=== PATIENT | male | born 1965 | race African-American/Black ===

== ENCOUNTER 2016-12-04 16:54 | Inpatient (IN) | payer OTHER ==
[~2016-12-04] VITALS: Ht 182.9 cm; Wt 75.3 kg
[2016-12-04] MEDS ORDERED: Pantoprazole 80 MG in NS 250 ML IV ONE (17:15)
[2016-12-04] MEDS ORDERED: Pantoprazole Inj IVP ONE (17:15)
[2016-12-04] MEDS ORDERED: Pantoprazole Inj ONE (18:01)
[2016-12-04 18:03] LABS: ALANINE AMINOTRANSFERASE 7 U/L (3-41); ANION GAP 23 (5-15); ASPARTATE AMINO TRANSFERASE 6 U/L (5-40); CALCIUM 10.5 mg/dL (8.6-10.2); CARBON DIOXIDE 24 mEQ/L (20-30); CHLORIDE 94 mEQ/L (98-107); CREATININE 21.3 mg/dL (0.7-1.2); GLOMERULAR FILTRATION RATE 2.8 mL/min (>60); HEMOLYSIS 5; LIPASE 42 U/L (< 60); POTASSIUM 5.1 mEQ/L (3.4-4.9); SODIUM 141 mEQ/L (135-145); TOTAL PROTEIN 6.7 g/dL (6.6-8.7)
[2016-12-04 18:15] LABS: PROTHROMBIN TIME 10.7 SEC (9.30-11.50)
--- NOTE | 2016-12-04 18:54 | Emergency Room Report ---
History of Present Illness General Chief Complaint: Gastrointestinal Bleed Source: Patient Present Illness HPI 51YOM BIBEMS for coffee ground emesis this morning and melena. No bright blood vomiting or per rectum Mild Abd pain Mild nausea now Had similar at [facility] last week - had "normal colonoscopy" and endoscopy showed "gastritis On Nexium Also on Plavix for stent placed recently Allergies: Coded Allergies: No Known Allergies (Unverified , 12/04/16) Patient History Past Medical History: CAD, GI bleed Past Surgical History: none Pertinent Family History: none Social History: Denies: smoking, alcohol use, drug use Immunizations: UTD Reviewed Nursing Documentation: PMH: Agreed, PSxH: Agreed Nursing Documentation-PMH Hx Gastrointestinal Problems: Yes - GIB ~ two weeks ago. Review of Systems All Other Systems: negative except mentioned in HPI Physical Exam Vital Signs Date Time Temp Pulse Resp B/P (MAP) Pulse Ox O2 Delivery O2 Flow Rate FiO2 12/04/16 16:53 97.5 109 18 144/97 100 Sp02 EP Interpretation: reviewed, normal General Appearance: normal inspection, well appearing, no apparent distress, alert, GCS 15, non-toxic Head: normocephalic, atraumatic Eyes: bilateral eye PERRL, bilateral eye EOMI ENT: normal ENT inspection, hearing grossly normal, normal voice Neck: normal inspection, full range of motion, supple, no bony tend Respiratory: normal inspection, lungs clear, normal breath sounds, no respiratory distress, no retraction, no wheezing Cardiovascular #1: regular rate, rhythm, no edema Gastrointestinal: normal inspection, normal bowel sounds, soft, no guarding, no hernia, other - Mild epigastric ttp. No peritonitis Genitourinary: no CVA tenderness Musculoskeletal: normal inspection, back normal, normal range of motion, Hattie' s Sign negative Neurologic: normal inspection, alert, oriented x3, responsive, typing bookkeeper III-XII nml as tested, speech normal Psychiatric: normal inspection, judgement/insight normal, mood/affect normal Skin: normal inspection, normal color, no rash Lymphatic: normal inspection Medical Decision Making Diagnostic Impression: Primary Impression: Gastrointestinal hemorrhage Qualified Codes: K92.2 - Gastrointestinal hemorrhage, unspecified Additional Impressions: Melena Anemia Qualified Codes: D64.9 - Anemia, unspecified ER Course Mild hyperK No active bleeding here Hb 6.2 Transfused 2Units in ED Vitals otherwise stable Asymptomatic Endorsed to Dr Ziegler for tele admit 654pm EKG Diagnostic Results Rate: tachycardiac Rhythm: NSR ST Segments: no acute changes ASA given to the pt in ED: No Rhythm Strip Diag. Results EP Interpretation: yes Rate: 99 Last Vital Signs Date Time Temp Pulse Resp B/P (MAP) Pulse Ox O2 Delivery O2 Flow Rate FiO2 12/04/16 16:53 97.5 109 18 144/97 100 Status: improved Disposition: ADMITTED INPATIENT Condition: Serious Referrals: NON PHYSICIAN (PCP) SCAR SCHOFIELD M.D. Dec 04, 2016 18:54
[2016-12-04 18:56] LABS: MEAN CORPUSCULAR HEMOGLOBIN 32.5 PG (27.0-31.0); MEAN CORPUSCULAR HGB CONC 34.3 G/DL (32.0-36.0); MEAN CORPUSCULAR VOLUME 95 FL (80-99); PLATELET COUNT 207 K/UL (150-450); RED BLOOD COUNT 1.92 M/UL (4.70-6.10); RED CELL DISTRIBUTION WIDTH 13.1 % (11.6-14.8)
[2016-12-04] MEDS ORDERED: Nitroglycerin Subl 0.4mg tab SL PRN (19:00)
[2016-12-04] MEDS ORDERED: Mylanta II UD 30ml ORAL PRN (19:00)
[2016-12-04] MEDS ORDERED: Morphine Sulfate 2mg/ml Inj IVP PRN (19:00)
[2016-12-04 19:09] VITALS: BP 144/97
[2016-12-04 20:51] VITALS: BP 136/107
[2016-12-04] MEDS ORDERED: FUROSEMIDE20 M1 ORAL (20:58)
[2016-12-04] MEDS ORDERED: COLACE100 MG ORAL (20:58)
[2016-12-04] MEDS ORDERED: RENVELA0.8 GM ORAL (20:58)
[2016-12-04] MEDS ORDERED: SENSIPAR30 MG ORAL (20:58)
[2016-12-04] MEDS ORDERED: CLONIDINE1 EAC1 TD (20:58)
[2016-12-04] MEDS ORDERED: RAMIPRIL2.5 MG ORAL (20:58)
[2016-12-04] MEDS ORDERED: AZOR 10-40 MG1 EACH ORAL (20:58)
[2016-12-04] MEDS ORDERED: PLAVIX75 MG ORAL (20:58)
[2016-12-04] MEDS ORDERED: OMEPRAZOLE10 M1 ORAL (20:58)
[2016-12-04] MEDS ORDERED: LIPITOR40 MG ORAL (20:58)
[2016-12-04] MEDS ORDERED: Miralax 17gm pkt ORAL PRN (21:00)
[2016-12-04 21:08] LABS: ANISOCYTOSIS 1+; BAND NEUTROPHILS % (MANUAL) 1 % (0-8); BASOPHILS % (MANUAL) 1 % (0-2); EOSINOPHILS % (MANUAL) 2 % (0-3); LYMPHOCYTES % (MANUAL) 25 % (20-45); NEUTROPHILS % (MANUAL) 65 % (45-75); PLATELET ESTIMATE ADEQUATE; PLATELET MORPHOLOGY NORMAL; TOTAL CELLS COUNTED 100
[2016-12-04 21:09] LABS: HYPOCHROMASIA 1+; POLYCHROMASIA 1+
[2016-12-04 21:35] VITALS: BP 142/96
[2016-12-04 21:50] VITALS: BP 152/101
[2016-12-04 22:57] VITALS: BP 174/109
[2016-12-04] MEDS ORDERED: Phytonadione 10 MG in D5W 55 ML IVPB ONE (23:00)
[2016-12-04] MEDS: D5NS 1,000 ML IV SCH (23:00)
[2016-12-05] VITALS (15 sets, daily range): BP systolic 85–160; BP diastolic 25–105
[2016-12-05 06:57] LABS: PROTHROMBIN TIME 10.3 SEC (9.30-11.50)
[2016-12-05 07:11] LABS: BASOPHILS % (AUTO) 1.3 % (0.0-2.0); EOSINOPHILS % (AUTO) 3.4 % (0.0-3.0); MEAN CORPUSCULAR HEMOGLOBIN 32.4 PG (27.0-31.0); MEAN CORPUSCULAR VOLUME 95 FL (80-99); MEAN PLATELET VOLUME 6.3 FL (6.5-10.1); NEUTROPHILS % (AUTO) 71.3 % (45.0-75.0); PLATELET COUNT 179 K/UL (150-450); RED BLOOD COUNT 2.46 M/UL (4.70-6.10); RED CELL DISTRIBUTION WIDTH 12.4 % (11.6-14.8); WHITE BLOOD COUNT 9.5 K/UL (4.8-10.8)
[2016-12-05 07:30] LABS: ALANINE AMINOTRANSFERASE 5 U/L (3-41); ALBUMIN/GLOBULIN RATIO 1.3 (1.0-2.7); AMYLASE 132 U/L (10-110); ANION GAP 22 (5-15); ASPARTATE AMINO TRANSFERASE < 5 U/L (5-40); CALCIUM 9.6 mg/dL (8.6-10.2); CARBON DIOXIDE 25 mEQ/L (20-30); CHLORIDE 97 mEQ/L (98-107); CREATININE 22.5 mg/dL (0.7-1.2); GLOMERULAR FILTRATION RATE 2.7 mL/min (>60); HEMOLYSIS 2; LIPASE 44 U/L (< 60); POTASSIUM 5.3 mEQ/L (3.4-4.9); SODIUM 144 mEQ/L (135-145); TOTAL PROTEIN 5.8 g/dL (6.6-8.7)
[2016-12-05] MEDS: D5NS 1,000 ML IV SCH (08:26)
[2016-12-05] MEDS ORDERED: NS 275ml IVPB ONE (09:55)
--- NOTE | 2016-12-05 10:07 | Anethesia Preoperative Eval ---
Anesthesia Pre-op PMH/ROS General Date of Evaluation: Dec 05, 2016 Time of Evaluation: 10:06 Anesthesiologist: negro ASA Score: ASA 3 Mallampati Score Class I : Soft palate, uvula, fauces, pillars visible Class II: Soft palate, uvula, fauces visible Class III: Soft palate, base of uvula visible Class IV: Only hard plate visible Mallampati Classification: Class III Surgeon: lenard Diagnosis: anemia; gi bleed Surgical Procedure: EGD Anesthesia History: none Family History: no anesthesia problems Allergies: Coded Allergies: No Known Allergies (Unverified , 12/04/16) Medications: see eMAR Past Medical History Cardiovascular: Reports: HTN, CAD Pulmonary: Denies: asthma, COPD, ANOOP, other Gastrointestinal/Genitourinary: Reports: CRI Neurologic/Psychiatric: Denies: dementia, CVA, depression/anxiety, TIA, other Endocrine: Denies: DM, hypothyroidism, steroids, other HEENT: Denies: cataract (L), cataract (R), glaucoma, [place] (L), [place] (R), other Hematology/Immune: Reports: anemia Musculoskeletal/Integumentary: Denies: OA, RA, DJD, DDD, edema, other PSxH Narrative: cardiac stent last week; colonoscopy Anesthesia Pre-op Phys. Exam Physician Exam Last Vital Signs Date Time Temp Pulse Resp B/P (MAP) Pulse Ox O2 Delivery O2 Flow Rate FiO2 12/05/16 08:39 164/105 12/05/16 08:16 96.8 96 20 99 Room Air Constitutional: NAD Neurologic: CN 2-12 intact Cardiovascular: RRR Respiratory: CTA Gastrointestinal: S/NT/ND Airway Exam Mallampati Classification 3 Mallampati Score: Class II MO: full ROM: full Dentures: no upper, no lower Anesthesia Pre-op A/P Labs Hematology Test 12/04/16 18:08 12/05/16 05:05 White Blood Count 9.0 K/UL (4.8-10.8) 9.5 K/UL (4.8-10.8) Red Blood Count 1.92 M/UL (4.70-6.10) L 2.46 M/UL (4.70-6.10) L Hemoglobin 6.2 G/DL (14.2-18.0) *L 8.0 G/DL (14.2-18.0) L Hematocrit 18.2 % (42.0-52.0) L 23.4 % (42.0-52.0) L Mean Corpuscular Volume 95 FL (80-99) 95 FL (80-99) Mean Corpuscular Hemoglobin 32.5 PG (27.0-31.0) H 32.4 PG (27.0-31.0) H Mean Corpuscular Hemoglobin Concent 34.3 G/DL (32.0-36.0) 34.0 G/DL (32.0-36.0) Red Cell Distribution Width 13.1 % (11.6-14.8) 12.4 % (11.6-14.8) Platelet Count 207 K/UL (150-450) 179 K/UL (150-450) Mean Platelet Volume 6.0 FL (6.5-10.1) L 6.3 FL (6.5-10.1) L Neutrophils (%) (Auto) % (45.0-75.0) 71.3 % (45.0-75.0) Lymphocytes (%) (Auto) % (20.0-45.0) 17.0 % (20.0-45.0) L Monocytes (%) (Auto) % (1.0-10.0) 7.0 % (1.0-10.0) Eosinophils (%) (Auto) % (0.0-3.0) 3.4 % (0.0-3.0) H Basophils (%) (Auto) % (0.0-2.0) 1.3 % (0.0-2.0) Differential Total Cells Counted 100 Neutrophils % (Manual) 65 % (45-75) Lymphocytes % (Manual) 25 % (20-45) Monocytes % (Manual) 6 % (1-10) Eosinophils % (Manual) 2 % (0-3) Basophils % (Manual) 1 % (0-2) Band Neutrophils 1 % (0-8) Platelet Estimate Adequate Platelet Morphology Normal Polychromasia 1+ Hypochromasia 1+ Anisocytosis 1+ Coagulation Test 12/04/16 17:48 12/05/16 05:05 Prothrombin Time 10.7 SEC (9.30-11.50) 10.3 SEC (9.30-11.50) Prothromb Time International Ratio 1.0 (0.9-1.1) 1.0 (0.9-1.1) Activated Partial Thromboplast Time 28 SEC (23-33) 26 SEC (23-33) Chemistry Test 12/04/16 17:20 12/05/16 05:05 Sodium Level 141 mEQ/L (135-145) 144 mEQ/L (135-145) Potassium Level 5.1 mEQ/L (3.4-4.9) H 5.3 mEQ/L (3.4-4.9) H Chloride Level 94 mEQ/L (98-107) L 97 mEQ/L (98-107) L Carbon Dioxide Level 24 mEQ/L (20-30) 25 mEQ/L (20-30) Anion Gap 23 (5-15) H 22 (5-15) H Blood Urea Nitrogen 96 mg/dL (7-23) H 120 mg/dL (7-23) H Creatinine 21.3 mg/dL (0.7-1.2) H 22.5 mg/dL (0.7-1.2) H Estimat Glomerular Filtration Rate 2.8 mL/min (>60) 2.7 mL/min (>60) Glucose Level 91 mg/dL (74-106) 75 mg/dL (74-106) Calcium Level 10.5 mg/dL (8.6-10.2) H 9.6 mg/dL (8.6-10.2) Total Bilirubin < 0.2 mg/dL (0.0-1.2) 0.3 mg/dL (0.0-1.2) Aspartate Amino Transf (AST/SGOT) 6 U/L (5-40) < 5 U/L (5-40) L Alanine Aminotransferase (ALT/SGPT) 7 U/L (3-41) 5 U/L (3-41) Alkaline Phosphatase 44 U/L (40-129) 41 U/L (40-129) Total Protein 6.7 g/dL (6.6-8.7) 5.8 g/dL (6.6-8.7) L Albumin 3.5 g/dL (3.5-5.2) 3.3 g/dL (3.5-5.2) L Globulin 3.2 g/dL 2.5 g/dL Albumin/Globulin Ratio 1.0 (1.0-2.7) 1.3 (1.0-2.7) Lipase 42 U/L (< 60) 44 U/L (< 60) Amylase Level 132 U/L (10-110) H Studies Pre-op Studies: EKG - ST - 90; received 2 units prbc, Risk Assessment & Plan Assessment: Add on pt under the care of Dr. Staley. Currently taking plavix for cardiac stentsx2 , done last week. Denies CP. No cardiac enzymes. H/H post [address] on ECG Plan: mac Status Change Before Surgery: No Pre-Antibiotics Drug: none DERIAN SILVERMAN CRNA Dec 05, 2016 10:07
--- NOTE | 2016-12-05 10:11 | Pre-Procedure Note/Attestation ---
Pre-Procedure Note/Attestation Complete Prior to Procedure Planned Procedure: not applicable Procedure Narrative: egd Indications for Procedure Pre-Operative Diagnosis: gib Attestation I attest that I discussed the nature of the procedure; its benefits; risks and complications; and alternatives (and the risks and benefits of such alternatives ), prior to the procedure, with the patient (or the patient's legal special service representative). I attest that, if there was a reasonable possibility of needing a blood transfusion, the patient (or the patient's legal special service representative) was given the [facility] standardized written summary, pursuant to the [place] Blood Safety Act ([place] Health and Safety Code # 1645, as amended). I attest that I re-evaluated the patient just prior to the surgery and that there has been no change in the patient's H&P, except as documented below: ADAL ESTEVEZ Dec 05, 2016 10:11
[2016-12-05] MEDS ORDERED: EPINEPHrine 1mg/10ml Syringe IV ONE (10:25)
[2016-12-05] MEDS ORDERED: DuoNeb 0.5-3(2.5)mg/3ml neb HHN PRN ×2 (10:30→13:30)
[2016-12-05] MEDS ORDERED: Succinylcholine 20mg/ml 10ml vial ONE (10:47)
[2016-12-05 11:12] LABS: URIC ACID 5.7 mg/dL (3.0-7.5)
[2016-12-05] MEDS ORDERED: Aminocaproic Acid Inj 5,000 MG in NS 110 ML IV ONE (11:30)
--- NOTE | 2016-12-05 11:54 | Endoscopy Procedure Note ---
Endoscopy Procedure Note Indication for Procedure: active GIB Procedures Performed: EGD Operative Findings/Diagnosis: active GIB s/p hemostasis Specimen: none Pt Tolerated Procedure Well: Yes Estimated Blood Loss: none Anesthesiologist: jeannie Anesthesia: MAC Implant(s) used?: No 50 yrs or older w/o bx or poly: Not Applicable 10yrs. F/U not recommended: Not Applicable ADAL ESTEVEZ Dec 05, 2016 11:54
[2016-12-05] MEDS ORDERED: Premarin Inj IV ONE (12:00)
[2016-12-05] MEDS ORDERED: Pantoprazole 80 MG in NS 250 ML IV SCH (12:00)
[2016-12-05] MEDS ORDERED: ERYTHROMYCIN IVPB SCH (12:00)
[2016-12-05] MEDS ORDERED: NS IVPB SCH (12:00)
--- NOTE | 2016-12-05 12:28 | 48 Hour Post Anesthesia Eval ---
Post Anesthesia Evaluation Procedure: EGD Date of Evaluation: Dec 05, 2016 Time of Evaluation: 12:27 Blood Pressure Systolic: 131 0: 92 Pulse Rate: 102 Respiratory Rate: 14 O2 Sat by Pulse Oximetry: 100 Airway: other - intubated/ 55% 550 14 Nausea: No Vomiting: No Hydration Status: adequate Mental Status/LOC: patient returned to baseline Follow-up Care/Observations: per gi/pcp Post-Anesthesia Complications: none Follow-up care needed: N/A DERIAN SILVERMAN CRNA Dec 05, 2016 12:28
--- NOTE | 2016-12-05 12:32 | Immediate Post-Op Evaluation ---
Immediate Post-Op Evalulation Immediate Post-Op Evalulation Procedure: EGD Date of Evaluation: Dec 05, 2016 Time of Evaluation: 11:15 IV Fluids: 800 Blood Products: 150 Estimated Blood Loss: 300 Blood Pressure Systolic: 131 Blood Pressure Diastolic: 65 Pulse Rate: 105 Respiratory Rate: 14 O2 Sat by Pulse Oximetry: 100 Nausea: No Vomiting: No Complications none Patient Status: reacts, ventilated - intubated patient in GI suite for airway protection. Pt had large mount of brown and red bright blood vomitus. VSS, called for 3 unit of blood. Hydration Status: adequate Drug: none DERIAN SILVERMAN CRNA Dec 05, 2016 12:32
[2016-12-05] MEDS ORDERED: Renvela 800mg Pkt ORAL SCH (13:00)
[2016-12-05 13:04] LABS: ABG PCO2 37.9 mmHg (35.0-45.0)
[2016-12-05 13:05] LABS: ABG ALLEN TEST POSITIVE
--- NOTE | 2016-12-05 13:20 | Diagnostic Imaging Report ---
Indication: Status post intubation Technique: One view of the chest Comparison: none Findings: There is an endotracheal tube in place, tip projecting approximately 7 cm above the reny, in satisfactory position. The lungs and pleural spaces are clear. The heart is upper limits of normal in size. Aorta is tortuous and calcified. There is thoracic scoliotic deformity Impression: Satisfactory endotracheal intubation No definite acute cardiopulmonary process
[2016-12-05] MEDS ORDERED: Mylanta II UD 30ml ORAL PRN (13:30)
[2016-12-05] MEDS ORDERED: D5NS 1,000 ML IV SCH (13:30)
[2016-12-05] MEDS ORDERED: Morphine Sulfate 2mg/ml Inj IVP PRN (13:30)
[2016-12-05] MEDS ORDERED: Nitroglycerin Subl 0.4mg tab SL PRN (13:30)
[2016-12-05] MEDS: Pantoprazole 80 MG in NS 250 ML IV SCH (13:45)
[2016-12-05] MEDS: Renvela 800mg Pkt ORAL SCH ×2 (13:45→18:00)
--- NOTE | 2016-12-05 13:59 | Consultation ---
Consult Note Consult Note asked to eval for dialysis 51YOM BIBEMS for coffee ground emesis this morning and melena. No bright blood vomiting or per rectum Mild Abd pain Mild nausea now [facility] - had "normal colonoscopy" and endoscopy showed "gastritis On Nexium Also on Plavix for stent placed recently Past Medical History: CAD, GI bleed patient has ESRD on PD ( has Tenchoff catheter left LQ) in ICU intubated meds: Lipitor-Clonidine- Plavix-DSS Ramipril Norvasc Omeprazol Assessment/Plan Status: ESRD on PD Acute GI Bleed- HTN Intubated on Vent post colonoscopy and endoscopy Plan; per GI arrange for Manoj cath and HD as Peritoneal dialysis is not done at [facility] ! Keep BP and H&H in check CELIO CAREY Dec 05, 2016 13:59
--- NOTE | 2016-12-05 14:21 | Cardiology Progress Note ---
Assessment/Plan Assessment/Plan sever anemia recurrent gi bleed esrd on pd cad s/p stent repeortely last week htn [id number] Objective Last 24 Hour Vital Signs Date Time Temp Pulse Resp B/P (MAP) Pulse Ox O2 Delivery O2 Flow Rate FiO2 12/05/16 13:26 105 14 50 12/05/16 12:32 105 14 100 12/05/16 12:28 102 14 100 12/05/16 12:00 104 12/05/16 11:44 108 23 50 12/05/16 08:39 164/105 12/05/16 08:16 96.8 96 20 154/102 99 Room Air 12/05/16 04:01 98.1 95 21 160/100 100 Room Air 95 12/05/16 04:00 102 12/05/16 00:00 104 12/04/16 23:33 98.3 101 19 169/102 100 Room Air 12/04/16 22:57 98.3 99 19 174/109 100 Room Air 12/04/16 21:50 98.3 113 17 152/101 100 Room Air 12/04/16 21:50 98.3 113 17 12/04/16 21:35 98.3 106 17 12/04/16 21:35 98.3 106 17 142/96 100 Room Air 12/04/16 20:51 97.5 111 17 136/107 100 Room Air 12/04/16 19:09 103 20 144/97 98 Room Air 12/04/16 16:53 97.5 109 18 144/97 100 Laboratory Tests Test 12/04/16 17:20 12/04/16 17:48 12/04/16 18:08 12/05/16 05:05 Sodium Level 141 mEQ/L (135-145) 144 mEQ/L (135-145) Potassium Level 5.1 mEQ/L (3.4-4.9) H 5.3 mEQ/L (3.4-4.9) H Chloride Level 94 mEQ/L (98-107) L 97 mEQ/L (98-107) L Carbon Dioxide Level 24 mEQ/L (20-30) 25 mEQ/L (20-30) Anion Gap 23 (5-15) H 22 (5-15) H Blood Urea Nitrogen 96 mg/dL (7-23) H 120 mg/dL (7-23) H Creatinine 21.3 mg/dL (0.7-1.2) H 22.5 mg/dL (0.7-1.2) H Estimat Glomerular Filtration Rate 2.8 mL/min (>60) 2.7 mL/min (>60) Glucose Level 91 mg/dL (74-106) 75 mg/dL (74-106) Calcium Level 10.5 mg/dL (8.6-10.2) H 9.6 mg/dL (8.6-10.2) Total Bilirubin < 0.2 mg/dL (0.0-1.2) 0.3 mg/dL (0.0-1.2) Aspartate Amino Transf (AST/SGOT) 6 U/L (5-40) < 5 U/L (5-40) L Alanine Aminotransferase (ALT/SGPT) 7 U/L (3-41) 5 U/L (3-41) Alkaline Phosphatase 44 U/L (40-129) 41 U/L (40-129) Total Protein 6.7 g/dL (6.6-8.7) 5.8 g/dL (6.6-8.7) L Albumin 3.5 g/dL (3.5-5.2) 3.3 g/dL (3.5-5.2) L Globulin 3.2 g/dL 2.5 g/dL Albumin/Globulin Ratio 1.0 (1.0-2.7) 1.3 (1.0-2.7) Lipase 42 U/L (< 60) 44 U/L (< 60) Prothrombin Time 10.7 SEC (9.30-11.50) 10.3 SEC (9.30-11.50) Prothromb Time International Ratio 1.0 (0.9-1.1) 1.0 (0.9-1.1) Activated Partial Thromboplast Time 28 SEC (23-33) 26 SEC (23-33) White Blood Count 9.0 K/UL (4.8-10.8) 9.5 K/UL (4.8-10.8) Red Blood Count 1.92 M/UL (4.70-6.10) L 2.46 M/UL (4.70-6.10) L Hemoglobin 6.2 G/DL (14.2-18.0) *L 8.0 G/DL (14.2-18.0) L Hematocrit 18.2 % (42.0-52.0) L 23.4 % (42.0-52.0) L Mean Corpuscular Volume 95 FL (80-99) 95 FL (80-99) Mean Corpuscular Hemoglobin 32.5 PG (27.0-31.0) H 32.4 PG (27.0-31.0) H Mean Corpuscular Hemoglobin Concent 34.3 G/DL (32.0-36.0) 34.0 G/DL (32.0-36.0) Red Cell Distribution Width 13.1 % (11.6-14.8) 12.4 % (11.6-14.8) Platelet Count 207 K/UL (150-450) 179 K/UL (150-450) Mean Platelet Volume 6.0 FL (6.5-10.1) L 6.3 FL (6.5-10.1) L Neutrophils (%) (Auto) % (45.0-75.0) 71.3 % (45.0-75.0) Lymphocytes (%) (Auto) % (20.0-45.0) 17.0 % (20.0-45.0) L Monocytes (%) (Auto) % (1.0-10.0) 7.0 % (1.0-10.0) Eosinophils (%) (Auto) % (0.0-3.0) 3.4 % (0.0-3.0) H Basophils (%) (Auto) % (0.0-2.0) 1.3 % (0.0-2.0) Differential Total Cells Counted 100 Neutrophils % (Manual) 65 % (45-75) Lymphocytes % (Manual) 25 % (20-45) Monocytes % (Manual) 6 % (1-10) Eosinophils % (Manual) 2 % (0-3) Basophils % (Manual) 1 % (0-2) Band Neutrophils 1 % (0-8) Platelet Estimate Adequate Platelet Morphology Normal Polychromasia 1+ Hypochromasia 1+ Anisocytosis 1+ Amylase Level 132 U/L (10-110) H Test 12/05/16 05:55 12/05/16 13:00 Uric Acid 5.7 mg/dL (3.0-7.5) Total Creatine Kinase 37 U/L (38-174) L Arterial Blood pH 7.362 (7.350-7.450) Arterial Blood Partial Pressure CO2 37.9 mmHg (35.0-45.0) Arterial Blood Partial Pressure O2 222.5 mmHg (75.0-100.0) H Arterial Blood HCO3 21.0 mmol/L (22.0-26.0) L Arterial Blood Oxygen Saturation 98.8 % (92.0-98.0) H Arterial Blood Base Excess -4.0 Chidi Test Positive KEV CORNEJO Dec 05, 2016 14:21
--- NOTE | 2016-12-05 14:30 | History and Physical ---
History of Present Illness General Date patient seen: Dec 04, 2016 Reason for Hospitalization: Gastrointestinal Bleed Present Illness HPI 51 year old male with hx of ESRF on peritoneal dialysis, with recent hx of GI bleeding, underwent cardiac stent placement recently and was started on Plaxis and aspirin presented to [facility] for coffee ground emesis yesterday morning and melena. He had similar episode at [facility] last week - had "normal colonoscopy" and endoscopy showed "gastritis. He was found severely anemia and admitted to telemetry for further work up. Allergies: Coded Allergies: No Known Allergies (Unverified , 12/04/16) Medication History Scheduled Amlodipine Bes/Olmesartan Med 10-40 Mg Tablet (Pasha 10-40 Mg Tablet), 1 TAB ORAL DAILY, (Reported) Atorvastatin Calcium* (Lipitor*), 40 MG ORAL DAILY, (Reported) Cinacalcet* (Sensipar*), 30 MG ORAL DAILY, (Reported) Clopidogrel Bisulfate* (Plavix*), 70 MG ORAL DAILY, (Reported) Docusate Sodium* (Colace*), 100 MG ORAL DAILY, (Reported) Furosemide* (Lasix*), 20 MG ORAL DAILY, (Reported) Omeprazole (Omeprazole), 10 MG ORAL DAILY, (Reported) Ramipril* (Ramipril*), 2.5 MG ORAL DAILY, (Reported) Sevelamer Carbonate* (Renvela*), 800 MG ORAL THREE TIMES A DAY, (Reported) Miscellaneous Medications Clonidine (Clonidine), 1 EACH TD, (Reported) Patient History Healthcare decision maker Resuscitation status Full Code Advanced Directive on File No Past Medical/Surgical History Past Medical/Surgical History: (1) Stented coronary artery (2) ESRF (end stage renal failure) (3) Peritoneal dialysis status Review of Systems Constitutional: Reports: malaise, weakness Eye: Reports: no symptoms ENT: Reports: no symptoms All Other Systems: negative except mentioned in HPI Physical Exam General Appearance: WD/WN Lines, tubes and drains: peripheral HEENT: normocephalic, atraumatic Neck: non-tender, normal alignment Respiratory/Chest: chest wall non-tender, lungs clear Cardiovascular/Chest: normal peripheral pulses, normal rate Abdomen: normal bowel sounds, non tender Extremities: normal range of motion Last 24 Hour Vital Signs Date Time Temp Pulse Resp B/P (MAP) Pulse Ox O2 Delivery O2 Flow Rate FiO2 9/19/17 13:26 105 14 50 12/05/16 12:32 105 14 100 12/05/16 12:28 102 14 100 12/05/16 12:00 104 12/05/16 11:44 108 23 50 12/05/16 08:39 164/105 12/05/16 08:16 96.8 96 20 154/102 99 Room Air 12/05/16 04:01 98.1 95 21 160/100 100 Room Air 95 12/05/16 04:00 102 12/05/16 00:00 104 12/04/16 23:33 98.3 101 19 169/102 100 Room Air 12/04/16 22:57 98.3 99 19 174/109 100 Room Air 12/04/16 21:50 98.3 113 17 152/101 100 Room Air 12/04/16 21:50 98.3 113 17 12/04/16 21:35 98.3 106 17 12/04/16 21:35 98.3 106 17 142/96 100 Room Air 12/04/16 20:51 97.5 111 17 136/107 100 Room Air 12/04/16 19:09 103 20 144/97 98 Room Air 12/04/16 16:53 97.5 109 18 144/97 100 Laboratory Tests Test 12/04/16 17:20 12/04/16 17:48 12/04/16 18:08 12/05/16 05:05 Sodium Level 141 mEQ/L (135-145) 144 mEQ/L (135-145) Potassium Level 5.1 mEQ/L (3.4-4.9) H 5.3 mEQ/L (3.4-4.9) H Chloride Level 94 mEQ/L (98-107) L 97 mEQ/L (98-107) L Carbon Dioxide Level 24 mEQ/L (20-30) 25 mEQ/L (20-30) Anion Gap 23 (5-15) H 22 (5-15) H Blood Urea Nitrogen 96 mg/dL (7-23) H 120 mg/dL (7-23) H Creatinine 21.3 mg/dL (0.7-1.2) H 22.5 mg/dL (0.7-1.2) H Estimat Glomerular Filtration Rate 2.8 mL/min (>60) 2.7 mL/min (>60) Glucose Level 91 mg/dL (74-106) 75 mg/dL (74-106) Calcium Level 10.5 mg/dL (8.6-10.2) H 9.6 mg/dL (8.6-10.2) Total Bilirubin < 0.2 mg/dL (0.0-1.2) 0.3 mg/dL (0.0-1.2) Aspartate Amino Transf (AST/SGOT) 6 U/L (5-40) < 5 U/L (5-40) L Alanine Aminotransferase (ALT/SGPT) 7 U/L (3-41) 5 U/L (3-41) Alkaline Phosphatase 44 U/L (40-129) 41 U/L (40-129) Total Protein 6.7 g/dL (6.6-8.7) 5.8 g/dL (6.6-8.7) L Albumin 3.5 g/dL (3.5-5.2) 3.3 g/dL (3.5-5.2) L Globulin 3.2 g/dL 2.5 g/dL Albumin/Globulin Ratio 1.0 (1.0-2.7) 1.3 (1.0-2.7) Lipase 42 U/L (< 60) 44 U/L (< 60) Prothrombin Time 10.7 SEC (9.30-11.50) 10.3 SEC (9.30-11.50) Prothromb Time International Ratio 1.0 (0.9-1.1) 1.0 (0.9-1.1) Activated Partial Thromboplast Time 28 SEC (23-33) 26 SEC (23-33) White Blood Count 9.0 K/UL (4.8-10.8) 9.5 K/UL (4.8-10.8) Red Blood Count 1.92 M/UL (4.70-6.10) L 2.46 M/UL (4.70-6.10) L Hemoglobin 6.2 G/DL (14.2-18.0) *L 8.0 G/DL (14.2-18.0) L Hematocrit 18.2 % (42.0-52.0) L 23.4 % (42.0-52.0) L Mean Corpuscular Volume 95 FL (80-99) 95 FL (80-99) Mean Corpuscular Hemoglobin 32.5 PG (27.0-31.0) H 32.4 PG (27.0-31.0) H Mean Corpuscular Hemoglobin Concent 34.3 G/DL (32.0-36.0) 34.0 G/DL (32.0-36.0) Red Cell Distribution Width 13.1 % (11.6-14.8) 12.4 % (11.6-14.8) Platelet Count 207 K/UL (150-450) 179 K/UL (150-450) Mean Platelet Volume 6.0 FL (6.5-10.1) L 6.3 FL (6.5-10.1) L Neutrophils (%) (Auto) % (45.0-75.0) 71.3 % (45.0-75.0) Lymphocytes (%) (Auto) % (20.0-45.0) 17.0 % (20.0-45.0) L Monocytes (%) (Auto) % (1.0-10.0) 7.0 % (1.0-10.0) Eosinophils (%) (Auto) % (0.0-3.0) 3.4 % (0.0-3.0) H Basophils (%) (Auto) % (0.0-2.0) 1.3 % (0.0-2.0) Differential Total Cells Counted 100 Neutrophils % (Manual) 65 % (45-75) Lymphocytes % (Manual) 25 % (20-45) Monocytes % (Manual) 6 % (1-10) Eosinophils % (Manual) 2 % (0-3) Basophils % (Manual) 1 % (0-2) Band Neutrophils 1 % (0-8) Platelet Estimate Adequate Platelet Morphology Normal Polychromasia 1+ Hypochromasia 1+ Anisocytosis 1+ Amylase Level 132 U/L (10-110) H Test 12/05/16 05:55 12/05/16 13:00 Uric Acid 5.7 mg/dL (3.0-7.5) Total Creatine Kinase 37 U/L (38-174) L Arterial Blood pH 7.362 (7.350-7.450) Arterial Blood Partial Pressure CO2 37.9 mmHg (35.0-45.0) Arterial Blood Partial Pressure O2 222.5 mmHg (75.0-100.0) H Arterial Blood HCO3 21.0 mmol/L (22.0-26.0) L Arterial Blood Oxygen Saturation 98.8 % (92.0-98.0) H Arterial Blood Base Excess -4.0 Chidi Test Positive Height (Feet): 6 Height (Inches): 0.00 Weight (Pounds): 150 Medications Current Medications Medications (Trade) Dose Ordered Sig/Ajit Route PRN Reason Start Time Stop Time Status Last Admin Dose Admin Acetaminophen (Tylenol) 650 mg Q4H PRN ORAL T>100.5 12/05/16 13:30 01/03/17 13:29 Albuterol/ Ipratropium (DuoNeb 0.5-3(2.5)mg/3ml) 3 ml Q4H PRN HHN Shortness of Breath 12/05/16 13:30 12/10/16 13:29 Aminocaproic Acid 5000 mg/Sodium Chloride 130 ml @ 130 mls/hr ONCE ONCE IV 12/06/16 15:30 12/06/16 16:29 Cinacalcet (Sensipar) 30 mg DAILY ORAL 12/06/16 09:00 01/05/17 08:59 Dextrose (Dextrose 50%) STAT PRN IV Hypoglycemia 12/05/16 13:30 01/03/17 13:29 Dextrose/Sodium Chloride 1,000 ml @ 30 mls/hr Q24H IV 12/06/16 14:30 01/05/17 14:29 Diphenhydramine HCl (Benadryl) 25 mg Q6H PRN ORAL Itching/Pruritis 12/05/16 13:30 01/03/17 13:29 Erythromycin Lactobionate 250 mg/Sodium Chloride 110 ml @ 110 mls/hr [id number] ERYTHROMYCIN IVPB 12/05/16 18:00 12/12/16 11:59 Hydralazine HCl (Apresoline) 10 mg Q4H PRN IV for spb >160 12/05/16 13:30 01/04/17 13:29 Morphine Sulfate (Morphine Sulfate) 2 mg Q4H PRN IVP Severe Pain (Pain Scale 7-10) 12/05/16 13:30 12/11/16 13:29 Nitroglycerin (Ntg) 0.4 mg Q5M X 3 DOSES PRN SL Prn Chest Pain 12/05/16 13:30 01/03/17 13:29 Ondansetron HCl (Zofran) 4 mg Q6H PRN IVP Nausea & Vomiting 12/05/16 13:30 01/03/17 13:29 Pantoprazole 80 mg/Sodium Chloride 250 ml @ 25 mls/hr Q10H IV 12/05/16 14:00 01/04/17 13:59 12/05/16 13:45 Polyethylene Glycol (Miralax) 17 gm HSPRN PRN ORAL Constipation 12/05/16 21:00 01/03/17 20:59 Sevelamer Carbonate (Renvela) 800 mg THREE TIMES A DAY ORAL 12/05/16 14:00 01/04/17 13:59 Temazepam (Restoril) 15 mg HSPRN PRN ORAL Insomnia 12/05/16 21:00 12/11/16 20:59 Assessment/Plan Problem List: (1) Hemorrhagic shock SNOMED: 257594 (2) Gastrointestinal hemorrhage ICD Codes: K92.2 - Gastrointestinal hemorrhage, unspecified SNOMED: 75672825 Qualifiers: Qualified Codes: K92.2 - Gastrointestinal hemorrhage, unspecified (3) ESRF (end stage renal failure) ICD Codes: N18.6 - End stage renal disease SNOMED: 25135594 (4) Peritoneal dialysis status ICD Codes: Z99.2 - Dependence on renal dialysis SNOMED: 354847319 (5) Stented coronary artery ICD Codes: Z95.5 - Presence of coronary angioplasty implant and graft SNOMED: 36600909, 245667732 (6) Anemia ICD Codes: D64.9 - Anemia, unspecified SNOMED: 210350235 Qualifiers: Qualified Codes: D64.9 - Anemia, unspecified Assessment/Plan prbc prn GI evaluation NPO iv fluids renal to see dvt prophylaxis cardiology decide when to start Plavix ROSALINDA ISAACS Dec 05, 2016 14:30
--- NOTE | 2016-12-05 14:36 | Pulmonolgy Critical Care Note ---
Critical Care - Asmt/Plan Problems: (1) Gastrointestinal hemorrhage (2) ESRF (end stage renal failure) (3) Hemorrhagic shock (4) Stented coronary artery (5) Peritoneal dialysis status (6) Anemia Respiratory: monitor respiratory rate, adjust FIO2 Cardiac: continue to monitor HR/BP Renal: F/U I&O, keep IV fluid Infectious Disease: check cultures, continue antibiotics Gastrointestinal: hold feedings, adjust feedings Endocrine: monitor blood sugar, check TSH Hematologic: monitor H/H Neurologic: PRN Morphine Prophylaxis: Protonix, Heparin Notes Reviewed: manager emergency department Discussed with: nurses, consultants Critical Care - Objective Last 24 Hour Vital Signs Date Time Temp Pulse Resp B/P (MAP) Pulse Ox O2 Delivery O2 Flow Rate FiO2 12/05/16 13:26 105 14 50 12/05/16 12:32 105 14 100 12/05/16 12:28 102 14 100 12/05/16 12:00 104 12/05/16 11:44 108 23 50 12/05/16 08:39 164/105 12/05/16 08:16 96.8 96 20 154/102 99 Room Air 12/05/16 04:01 98.1 95 21 160/100 100 Room Air 95 12/05/16 04:00 102 12/05/16 00:00 104 12/04/16 23:33 98.3 101 19 169/102 100 Room Air 12/04/16 22:57 98.3 99 19 174/109 100 Room Air 12/04/16 21:50 98.3 113 17 152/101 100 Room Air 12/04/16 21:50 98.3 113 17 12/04/16 21:35 98.3 106 17 12/04/16 21:35 98.3 106 17 142/96 100 Room Air 12/04/16 20:51 97.5 111 17 136/107 100 Room Air 12/04/16 19:09 103 20 144/97 98 Room Air 12/04/16 16:53 97.5 109 18 144/97 100 Status: awake Condition: critical HEENT: atraumatic Lungs: clear Heart: HR/BP stable, HR/BP unstable Abdomen: soft, non-tender, feeding tube Extremities: no C/C/E, edema Critical Care - Subjective ROS Limited/Unobtainable: No ICU Day: 1 Intubation Day: 1 Interval Events: pt was intubated after endoscopy, abnormal gastric vessels were clipped. FI02: 50 Vent Support Breath Rate: 14 Vent Support Mode: AC Vent Tidal Volume: 550 Sputum Amount: Small PIP: 21 Fluids: d5 1/2 NS 100 cc.hour CXR: roxann ET-Tube: 7.5 ET Position: 23 Labs: Laboratory Tests Test 12/04/16 17:20 12/04/16 17:48 12/04/16 18:08 12/05/16 05:05 Sodium Level 141 mEQ/L (135-145) 144 mEQ/L (135-145) Potassium Level 5.1 mEQ/L (3.4-4.9) H 5.3 mEQ/L (3.4-4.9) H Chloride Level 94 mEQ/L (98-107) L 97 mEQ/L (98-107) L Carbon Dioxide Level 24 mEQ/L (20-30) 25 mEQ/L (20-30) Anion Gap 23 (5-15) H 22 (5-15) H Blood Urea Nitrogen 96 mg/dL (7-23) H 120 mg/dL (7-23) H Creatinine 21.3 mg/dL (0.7-1.2) H 22.5 mg/dL (0.7-1.2) H Estimat Glomerular Filtration Rate 2.8 mL/min (>60) 2.7 mL/min (>60) Glucose Level 91 mg/dL (74-106) 75 mg/dL (74-106) Calcium Level 10.5 mg/dL (8.6-10.2) H 9.6 mg/dL (8.6-10.2) Total Bilirubin < 0.2 mg/dL (0.0-1.2) 0.3 mg/dL (0.0-1.2) Aspartate Amino Transf (AST/SGOT) 6 U/L (5-40) < 5 U/L (5-40) L Alanine Aminotransferase (ALT/SGPT) 7 U/L (3-41) 5 U/L (3-41) Alkaline Phosphatase 44 U/L (40-129) 41 U/L (40-129) Total Protein 6.7 g/dL (6.6-8.7) 5.8 g/dL (6.6-8.7) L Albumin 3.5 g/dL (3.5-5.2) 3.3 g/dL (3.5-5.2) L Globulin 3.2 g/dL 2.5 g/dL Albumin/Globulin Ratio 1.0 (1.0-2.7) 1.3 (1.0-2.7) Lipase 42 U/L (< 60) 44 U/L (< 60) Prothrombin Time 10.7 SEC (9.30-11.50) 10.3 SEC (9.30-11.50) Prothromb Time International Ratio 1.0 (0.9-1.1) 1.0 (0.9-1.1) Activated Partial Thromboplast Time 28 SEC (23-33) 26 SEC (23-33) White Blood Count 9.0 K/UL (4.8-10.8) 9.5 K/UL (4.8-10.8) Red Blood Count 1.92 M/UL (4.70-6.10) L 2.46 M/UL (4.70-6.10) L Hemoglobin 6.2 G/DL (14.2-18.0) *L 8.0 G/DL (14.2-18.0) L Hematocrit 18.2 % (42.0-52.0) L 23.4 % (42.0-52.0) L Mean Corpuscular Volume 95 FL (80-99) 95 FL (80-99) Mean Corpuscular Hemoglobin 32.5 PG (27.0-31.0) H 32.4 PG (27.0-31.0) H Mean Corpuscular Hemoglobin Concent 34.3 G/DL (32.0-36.0) 34.0 G/DL (32.0-36.0) Red Cell Distribution Width 13.1 % (11.6-14.8) 12.4 % (11.6-14.8) Platelet Count 207 K/UL (150-450) 179 K/UL (150-450) Mean Platelet Volume 6.0 FL (6.5-10.1) L 6.3 FL (6.5-10.1) L Neutrophils (%) (Auto) % (45.0-75.0) 71.3 % (45.0-75.0) Lymphocytes (%) (Auto) % (20.0-45.0) 17.0 % (20.0-45.0) L Monocytes (%) (Auto) % (1.0-10.0) 7.0 % (1.0-10.0) Eosinophils (%) (Auto) % (0.0-3.0) 3.4 % (0.0-3.0) H Basophils (%) (Auto) % (0.0-2.0) 1.3 % (0.0-2.0) Differential Total Cells Counted 100 Neutrophils % (Manual) 65 % (45-75) Lymphocytes % (Manual) 25 % (20-45) Monocytes % (Manual) 6 % (1-10) Eosinophils % (Manual) 2 % (0-3) Basophils % (Manual) 1 % (0-2) Band Neutrophils 1 % (0-8) Platelet Estimate Adequate Platelet Morphology Normal Polychromasia 1+ Hypochromasia 1+ Anisocytosis 1+ Amylase Level 132 U/L (10-110) H Test 12/05/16 05:55 12/05/16 13:00 Uric Acid 5.7 mg/dL (3.0-7.5) Total Creatine Kinase 37 U/L (38-174) L Arterial Blood pH 7.362 (7.350-7.450) Arterial Blood Partial Pressure CO2 37.9 mmHg (35.0-45.0) Arterial Blood Partial Pressure O2 222.5 mmHg (75.0-100.0) H Arterial Blood HCO3 21.0 mmol/L (22.0-26.0) L Arterial Blood Oxygen Saturation 98.8 % (92.0-98.0) H Arterial Blood Base Excess -4.0 Chidi Test Positive ROSALINDA ISAACS Dec 05, 2016 14:36
[2016-12-05] MEDS ORDERED: Tubing Blood Filter IV ONE (15:05)
[2016-12-05] MEDS ORDERED: Tubing IV Secondary IV ONE (15:05)
[2016-12-05] MEDS ORDERED: NS 275ml ONE (15:05)
[2016-12-05] MEDS: D5 1/2NS 1,000 ML IV SCH (15:27)
--- NOTE | 2016-12-05 15:40 | Diagnostic Imaging Report ---
Indication: Abnormal renal function tests Technique: Grayscale and duplex images of the kidneys, retroperitoneum, and bladder were obtained. Comparison:None Findings: Right kidney measures 7.9 cm in length. Left kidney measures 9.6 cm in length. Both kidneys demonstrate increased echogenicity. No hydronephrosis. Both kidneys demonstrate small cysts. Normal inferior vena cava. Bladder is nearly empty, demonstrates mild wall thickening. Impression: Echogenic bilateral kidneys, consistent with known history of chronic renal failure. Note atrophy of the right kidney Mild bladder wall thickening, significance uncertain. Possibility of cystitis should be considered Incidental finding bilateral renal cysts
[2016-12-05] MEDS ORDERED: Heparin 2000 units/Ns 1000ml IV PRN (15:45)
[2016-12-05] MEDS ORDERED: Lidocaine 1% Plain 30 ml INJ PRN (15:45)
[2016-12-05 15:59] LABS: BASOPHILS % (AUTO) 1.4 % (0.0-2.0); EOSINOPHILS % (AUTO) 0.5 % (0.0-3.0); LYMPHOCYTES % (AUTO) 8.1 % (20.0-45.0); MEAN CORPUSCULAR HEMOGLOBIN 31.1 PG (27.0-31.0); MEAN CORPUSCULAR HGB CONC 33.3 G/DL (32.0-36.0); MEAN CORPUSCULAR VOLUME 93 FL (80-99); MEAN PLATELET VOLUME 6.6 FL (6.5-10.1); MONOCYTES % (AUTO) 5.9 % (1.0-10.0); NEUTROPHILS % (AUTO) 84.2 % (45.0-75.0); PLATELET COUNT 191 K/UL (150-450); RED BLOOD COUNT 2.74 M/UL (4.70-6.10); WHITE BLOOD COUNT 12.7 K/UL (4.8-10.8)
--- NOTE | 2016-12-05 17:01 | Diagnostic Imaging Report ---
Indication: History of chronic renal failure. Needs dialysis access Technique: Procedure performed at bedside. Informed consent obtained prior to commencement of the procedure. Procedural timeout performed. Total sterile technique, including sterile probe cover and sterile gel, sterile gloves, hand hygiene, hat, mask, sterile gown, large sterile drape, and preparation with 2% chlorhexidine utilized. Local anesthesia with 1% lidocaine. Under real-time ultrasound guidance, puncture right external jugular vein using 21-gauge single, passage 0.018 guidewire, insertion 5 Kuwaiti micropuncture introducer, passage 0.035 guidewire, over which was passed serial dilators and then a 13 [place]i 15 cm triple-lumen temporary dialysis catheter. Guidewire was removed. Catheter ports were aspirated and flushed. The catheter was fixed to the skin. Patient tolerated procedure well. A chest x-ray was obtained, documents catheter tip position at the in the superior vena cava. Comparison: None Findings: As above Impression: Successful bedside placement of right external jugular temporary dialysis catheter, as described.
[2016-12-05 19:26] LABS: MEAN CORPUSCULAR HEMOGLOBIN 33.7 PG (27.0-31.0); MEAN CORPUSCULAR HGB CONC 36.4 G/DL (32.0-36.0); MEAN CORPUSCULAR VOLUME 93 FL (80-99); MEAN PLATELET VOLUME 6.4 FL (6.5-10.1); PLATELET COUNT 149 K/UL (150-450); RED BLOOD COUNT 2.39 M/UL (4.70-6.10); RED CELL DISTRIBUTION WIDTH 13.2 % (11.6-14.8); WHITE BLOOD COUNT 13.4 K/UL (4.8-10.8)
[2016-12-05 19:38] LABS: LACTATE DEHYDROGENASE 139 U/L (135-230)
[2016-12-05 19:40] LABS: HEMOLYSIS 2; IRON 166 ug/dL (59-158); TOTAL IRON BINDING CAPACITY 213 ug/dL (250-400)
[2016-12-05 19:48] LABS: FERRITIN 648 ng/mL (10-230)
[2016-12-05 20:47] LABS: ANISOCYTOSIS 1+; BAND NEUTROPHILS % (MANUAL) 1 % (0-8); BASOPHILS % (MANUAL) 0 % (0-2); EOSINOPHILS % (MANUAL) 1 % (0-3); HYPOCHROMASIA 1+; LYMPHOCYTES % (MANUAL) 10 % (20-45); NEUTROPHILS % (MANUAL) 79 % (45-75); PLATELET ESTIMATE DECREASED; PLATELET MORPHOLOGY NORMAL; TOTAL CELLS COUNTED 100
[2016-12-05 20:48] LABS: PATH BLOOD SMEAR/OMC SENT TO PATHOLOGIST; RETICULOCYTE COUNT 1.5 % (0.0-2.0)
[2016-12-05] MEDS: NS IVPB SCH (20:53)
[2016-12-05] MEDS: ERYTHROMYCIN IVPB SCH (20:53)
[2016-12-05] MEDS ORDERED: Miralax 17gm pkt ORAL PRN (21:00)
--- NOTE | 2016-12-05 21:30 | Procedure Note ---
DATE OF PROCEDURE: 12/05/2016 REFERRING PHYSICIAN: Lynette Ziegler M.D. SURGEON: Khai Funez M.D. PROCEDURE: Upper endoscopy with hemostasis. ANESTHESIA: Per Radha BURROUGHS. INSTRUMENT: Olympus adult flexible upper endoscope. INDICATION: Upper GI bleeding. Reason for Procedure: The procedure, risks, benefits, and possible consequences, including hemorrhage, aspiration, perforation and infection, and alternative treatments, were explained to the patient/legal guardian by Dr. Khai Funez and the patient/legal guardian understood and accepted these risks. Description Of Procedure: After informed consent was obtained and the patient was adequately sedated, Olympus upper endoscope was advanced from the mouth into the second portion of the duodenum. The patient had a lot of blood clots in the stomach. We started to look for a lesion in the midbody of the stomach around the greater curvature, most probably the source of bleeding because it was oozing blood. As we tried to put a clip on it, the patient started vomiting, so we had to take the scope out. The patient vomited a lot of coffee-ground material. We suctioned, cleaned up his mouth, we stabilized him again, and went back again into the stomach. We were able to place two clips on this Dieulafoy lesion. I also injected 2 mL of 10:10,000 dilution epinephrine was injected around this Dieulafoy area. Also, we tattooed the area for future endoscopies if the patient rebleeds. At this time, the scope was retrieved and procedure was terminated. Summary Of Findings: Active bleeding in the stomach from a Dieulafoy lesion in the midbody of the stomach, status post hemostasis with two Hemoclip placement and 2 mL of epinephrine injection and also tattooing the area for future references. Plan: The patient will be admitted to ICU. We will put the patient on Protonix drip. We are also going to give him erythromycin for emptying the stomach. If the patient rebleeds, we have to go back in. We are also going to keep him n.p.o., transfuse him 1 unit, and monitor his hemoglobin and hematocrit closely. Regarding starting Plavix, I have to discuss with the dinkey engine firer/fireman given the patient has just had a stent and has not had Plavix since Sunday, but he is actively also bleeding. it is safe to wait for another 24 hours without the Plavix. We will discuss with the dinkey engine firer/fireman. I want to thank Dr. Ziegler for this kind referral. Khai Funez M.D. DR: AKIKO JOB#: [id number] CC: Lynette Ziegler M.D.; Fax#: [phone]
[2016-12-06] VITALS (24 sets, daily range): BP systolic 123–173; BP diastolic 79–115
[2016-12-06] MEDS: Pantoprazole 80 MG in NS 250 ML IV SCH ×3 (00:01→20:46)
--- NOTE | 2016-12-06 02:00 | Consultation ---
DATE OF CONSULTATION: 12/05/2016 CARDIOLOGY CONSULTATION CONSULTING PHYSICIAN: Manuel Orozco M.D. REFERRING PHYSICIAN: Lynette Ziegler M.D. Reason For Referral: Gastrointestinal bleed in the setting of recent percutaneous coronary intervention. History of Present Illness: The patient is a very unfortunate middle-aged gentleman, whose information is obtained from the patient although he is on a ventilator, he is not able to talk, and from review of the patient's chart at [facility]. The patient apparently has had history of recurrent GI bleeds for which he had several clippings, one back in July 2016 and subsequently another one back in September 2016. In September 2016, the records indicate he had GI blood loss and he underwent clipping x1 with biopsy and colonoscopy at the same time was performed. The patient was taken off of aspirin on 10/02/2016. Apparently last week, he went in for workup for evaluation of kidney transplant and during that transplantation, he had some abnormalities of a stress test and as I understand in talking with the patient, he had two stents in apparently two different vessels, that information is not completely clear which vessel, but he does clearly indicate he had two stents put in at that time and he was started on aspirin and Plavix at that time. He presented to the hospital here in emergency room because of GI bleeding again of significant degree. He was taken for an endoscopy by Dr. Funez having found Dieulafoy lesions for which clips were placed and another one was found in the esophagus. The patient in the meantime has not been able to take his aspirin and Plavix since possibly yesterday although it is not completely clear whether he took the dose yesterday or not. Nevertheless, this consultation was subsequently requested. The patient never had any chest pain prior to his percutaneous coronary intervention as I understand that this was all performed in the setting of pretransplant treatment and evaluation. He has no chest pain at the present time. He did have some shortness of breath last night. There is no PND or orthopnea. He did not have any significant dizziness or lightheadedness. He has some palpitations at times. Past Medical History: Positive for history of recurrent GI bleeding on several occasions having clips, anemia, chronic renal disease, anemia secondary to blood loss acute as well as renal failure, peritoneal dialysis in situ, systemic hypertension, hyperlipidemia, and cervical disease had been documented in [facility] records. 02:27 records from [facility] indicated the patient has had some records at [facility] which showed that in 2014, he had had some heart failure, one record indicates ejection fraction of less than 30% and subsequently 40%, hypertensive urgency, and he has had history of altered mentation and delirium tremens as well as alcohol abuse history and abnormal liver function on prior occasions, [facility] as well as thrombocytopenia and electrolyte abnormalities as well as tachycardia. He has also had secondary hyperparathyroidism and the records from [facility] also were reviewed. He apparently had history of smoking. At [facility] evaluation for transplant, they had a concern about him not being compliant with medication. Apparently, they did an echocardiogram which showed excellent ejection fraction in 2016 with a stress test showing at that time no evidence of ischemia. PAST SURGICAL HISTORY: Cervical laminectomy. Allergies: [facility] indicates he is allergic to FERNANDO inhibitors. [facility] records indicate he has had some allergic reaction to beta-blockers, carvedilol. Social History: He has had history of smoking and alcohol drinks. He absolutely denies any cocaine use; however, his [facility] records indicate he has had cocaine use back in 1980s. Review of Systems: Gastrointestinal: As mentioned, nausea and vomiting one day before. Genitourinary: He makes some urine. He is on peritoneal dialysis. Pulmonary: Denies any coughing or wheezing. Constitutional: Denies any fever, chills, or night sweats. Neurologic: He denies. PHYSICAL EXAMINATION: General: This is a middle-aged gentleman on a mechanical ventilator, awake and responsive. ET tube has some secretions within it. Vital Signs: His blood pressure is anywhere between to 164/105. LUNGS: Relatively clear except for some rhonchi. CARDIAC: Regular rhythm. Tachycardic. No heaves or thrills noted. ABDOMEN: Soft and nontender. Positive bowel sounds. EXTREMITIES: There is no edema, clubbing, or cyanosis. Neurologic: He is awake, alert, and responsive. He seems to be moving all four extremities. Laboratory And Diagnostic Data: EKG shows sinus tachycardia, rate of 109 at the time of presentation, delay in R-wave progression that was noted on the electrocardiogram. His other laboratories when he presented to the emergency room last night, he had hemoglobin of 6.2 and subsequently this morning, it was 8.0, his white count 9.5 today, and his platelet count was 179,000. Blood gas, pH of 7.36, pCO2 38, pO2 of 221, bicarbonate of 21, and 99% saturation. Sodium 144, potassium 5.2, chloride 97, bicarbonate 25, BUN 120, and creatinine 22.2. Uric acid of 5.7. AST less than 5, ALT 5, and alkaline phosphatase 41. CK of 337. Coagulation studies, INR 1.0 and PTT of 22. Imaging, chest x-ray was performed, satisfactory endotracheal tube placement. ASSESSMENT AND PLAN: 1. Acute gastrointestinal bleed. 2. Acute anemia. 3. History of gastrointestinal bleed and anemia, requiring clipping on several occasions. 4. End-stage renal disease, on home peritoneal dialysis. 5. Sinus tachycardia secondary to anemia. 6. Hypertension. 7. Anemia of chronic disease. 8. Hyperlipidemia. 9. Secondary hyperparathyroidism. 10. History of cervical laminectomy. 11. FERNANDO inhibitor as well as carvedilol allergic reactions. 12. Coronary artery disease, status post recent stenting one week ago or so at [facility]. Dr. Ziegler, this patient was seen in cardiac consultation. The case was discussed with GI as well as yourself. It appears that records from [facility] indicate he has had several bouts of GI bleeding. His episode of gastrointestinal bleeding most recently has been treated today acutely by Dr. Funez, who I have got a chance to talk with. He has got significant bleeding issues that he was noted, but those were clipped. In the communication with Dr. Funez, he will consider allowing us to restart antiplatelet agents as soon as tomorrow hopefully to prevent his stents from thrombosing as they are brand-new stents. I need more details of the type of stent that was used. [facility] will need to be contacted to provide information about those. In the meantime, I will order an echocardiogram to evaluate his left ventricular systolic function. Cardiac enzyme will be ordered, EKG will be repeated, and we will follow the patient along. He does have significant risk of stent thrombosis should he be off his aspirin and Plavix. Unfortunately, he will require minimal at least 30 days for those, but most likely the usual treatment of at least six months because he did not have unstable angina at the time of his implantation of his coronaries. Nevertheless, at least a month before discontinuation needs to be considered, but likely six months. Manuel Orozco M.D. DR: CROW JOB#: [id number] CC:
[2016-12-06] MEDS: NS IVPB SCH ×3 (02:26→19:15)
[2016-12-06] MEDS: ERYTHROMYCIN IVPB SCH ×3 (02:26→19:15)
[2016-12-06 06:01] LABS: MEAN CORPUSCULAR HEMOGLOBIN 32.7 PG (27.0-31.0); MEAN CORPUSCULAR HGB CONC 34.8 G/DL (32.0-36.0); MEAN CORPUSCULAR VOLUME 94 FL (80-99); MEAN PLATELET VOLUME 5.9 FL (6.5-10.1); PLATELET COUNT 127 K/UL (150-450); RED BLOOD COUNT 2.07 M/UL (4.70-6.10); RED CELL DISTRIBUTION WIDTH 13.8 % (11.6-14.8); WHITE BLOOD COUNT 9.5 K/UL (4.8-10.8)
[2016-12-06 06:28] LABS: CRP QUANT 1.8 mg/dL (< 0.5)
[2016-12-06 06:29] LABS: ALBUMIN/GLOBULIN RATIO 1.1 (1.0-2.7); CALCIUM 9.1 mg/dL (8.6-10.2); CHOLESTEROL/HDL RATIO 2.8 (3.3-4.4); CREATININE 13.8 mg/dL (0.7-1.2); GLOMERULAR FILTRATION RATE 4.6 mL/min (>60); PHOSPHORUS 4.3 mg/dL (2.5-4.8); POTASSIUM 4.7 mEQ/L (3.4-4.9); TOTAL PROTEIN 5.4 g/dL (6.6-8.7)
[2016-12-06 06:32] LABS: THYROID STIMULATING HORMONE 3.14 uIU/mL (0.300-4.500)
[2016-12-06 08:06] LABS: ABG ALLEN TEST POSITIVE; ABG BASE EXCESS -0.6; ABG PCO2 36.2 mmHg (35.0-45.0)
[2016-12-06] MEDS: Sensipar 30mg Tab ORAL SCH (08:34)
[2016-12-06] MEDS: Renvela 800mg Pkt ORAL SCH ×3 (08:34→18:00)
--- NOTE | 2016-12-06 08:34 | General Progress Note ---
Assessment/Plan Status: stable - from renal stand Status Narrative Had HD yesterday via right jugular Manoj Assessment/Plan status: ESRD on PD as out patient Acute GI Bleed- Anemia HTN Intubated on Vent post colonoscopy and endoscopy Plan; per GI Was diaslysed yesterday will repeat in am Keep BP and H&H in check transfuse as needed Weaning off vent as possible per orders Subjective ROS Limited/Unobtainable: Yes Allergies: Coded Allergies: No Known Allergies (Unverified , 12/04/16) Objective Last 24 Hour Vital Signs Date Time Temp Pulse Resp B/P (MAP) Pulse Ox O2 Delivery O2 Flow Rate FiO2 12/06/16 08:00 97.8 102 16 146/85 100 Mechanical Ventilator 50 12/06/16 08:00 50 12/06/16 08:00 86 12/06/16 07:26 172/106 12/06/16 07:00 92 15 172/106 100 Mechanical Ventilator 50 12/06/16 07:00 87 14 50 12/06/16 06:00 92 15 155/94 100 Mechanical Ventilator 50 12/06/16 05:09 96 17 50 12/06/16 05:00 88 15 151/96 100 Mechanical Ventilator 50 12/06/16 04:00 98.1 100 16 141/83 100 Mechanical Ventilator 50 12/06/16 04:00 50 12/06/16 04:00 91 12/06/16 03:30 90 14 50 12/06/16 03:00 96 15 173/104 100 Mechanical Ventilator 50 12/06/16 02:27 174/96 12/06/16 02:00 100 15 160/96 100 Mechanical Ventilator 50 12/06/16 01:30 86 13 50 12/06/16 01:00 83 15 160/99 100 Mechanical Ventilator 50 12/06/16 00:00 98.4 93 20 155/97 100 Mechanical Ventilator 50 12/06/16 00:00 50 12/06/16 00:00 88 12/05/16 23:30 89 15 50 12/05/16 23:00 90 15 151/93 100 Mechanical Ventilator 50 12/05/16 22:00 95 15 144/93 100 Mechanical Ventilator 50 12/05/16 21:21 111 22 50 12/05/16 21:00 94 15 158/98 100 Mechanical Ventilator 50 12/05/16 20:39 Mechanical Ventilator 50 12/05/16 20:37 98.0 100 16 134/88 100 Mechanical Ventilator 50 12/05/16 20:00 98.0 97 19 131/87 100 Mechanical Ventilator 50 12/05/16 20:00 50 12/05/16 20:00 106 12/05/16 19:30 100 15 50 12/05/16 19:00 111 18 86/59 100 Mechanical Ventilator 50 12/05/16 18:00 117 15 109/83 99 Mechanical Ventilator 50 12/05/16 17:17 108 18 50 12/05/16 17:00 111 19 148/100 99 Mechanical Ventilator 50 12/05/16 16:40 Mechanical Ventilator 50 12/05/16 16:11 50 12/05/16 16:00 97.6 118 19 144/104 99 Mechanical Ventilator 50 12/05/16 16:00 118 12/05/16 15:00 118 23 50 12/05/16 14:00 116 19 85/25 99 Mechanical Ventilator 50 12/05/16 13:26 105 14 50 12/05/16 13:00 108 19 139/105 99 Mechanical Ventilator 50 12/05/16 12:32 105 14 100 12/05/16 12:28 102 14 100 12/05/16 12:00 104 19 131/91 99 Mechanical Ventilator 50 12/05/16 12:00 104 12/05/16 12:00 50 12/05/16 11:44 108 23 50 12/05/16 08:39 164/105 Intake and Output 12/06/16 12/07/16 19:00 07:00 Intake Total 75 ml Output Total 60 ml Balance 15 ml IV Total 75 ml Output Urine Total 60 ml Laboratory Tests 12/05/16 13:00: Arterial Blood pH 7.362, Arterial Blood Partial Pressure CO2 37.9, Arterial Blood Partial Pressure O2 222.5H, Arterial Blood HCO3 21.0L, Arterial Blood Oxygen Saturation 98.8H, Arterial Blood Base Excess -4.0, Chidi Test Positive 12/05/16 15:07: White Blood Count 12.7H, Red Blood Count 2.74L, Hemoglobin 8.5L, Hematocrit 25.6L, Mean Corpuscular Volume 93, Mean Corpuscular Hemoglobin 31.1H, Mean Corpuscular Hemoglobin Concent 33.3, Red Cell Distribution Width 13.0, Platelet Count 191, Mean Platelet Volume 6.6, Neutrophils (%) (Auto) 84.2H, Lymphocytes ( %) (Auto) 8.1L, Monocytes (%) (Auto) 5.9, Eosinophils (%) (Auto) 0.5, Basophils (%) (Auto) 1.4 12/05/16 18:50: White Blood Count 13.4H, Red Blood Count 2.39L, Hemoglobin 8.0L, Hematocrit 22.1L, Mean Corpuscular Volume 93, Mean Corpuscular Hemoglobin 33.7H, Mean Corpuscular Hemoglobin Concent 36.4H, Red Cell Distribution Width 13.2, Platelet Count 149L, Mean Platelet Volume 6.4L, Neutrophils (%) (Auto) , Lymphocytes (%) (Auto) , Monocytes (%) (Auto) , Eosinophils (%) (Auto) , Basophils (%) (Auto) , Differential Total Cells Counted 100, Neutrophils % ( Manual) 79H, Lymphocytes % (Manual) 10L, Monocytes % (Manual) 9, Eosinophils % ( Manual) 1, Basophils % (Manual) 0, Band Neutrophils 1, Platelet Estimate DecreasedL, Platelet Morphology Normal, Hypochromasia 1+, Anisocytosis 1+, Reticulocyte Count 1.5, Fibrinogen 424H, Iron Level 166H, Total Iron Binding Capacity 213L, Percent Iron Saturation 78H, Unsaturated Iron Binding 47L, Soluble Transferrin Receptor [Pending], Ferritin 648H, Lactate Dehydrogenase 139 , Total Protein (PEP) [Pending], Albumin (PEP) [Pending], Globulin (PEP) [ Pending], Albumin/Globulin Ratio [Pending], Uetzi-5-Aujxmhapf [Pending], Alpha-2 -Globulins [Pending], Beta Globulins [Pending], Beta Gamma Globulin [Pending], PEP Abnormal Protein Bands [Pending], Protein Electrophoresis Interpret [Pending ], Vitamin B12 Level 490, Folate 3.7, Hepatitis A IgM Antibody Negative, Hepatitis B Surface Antigen Negative, Hepatitis B Core IgM Antibody Negative, Hepatitis C Antibody <0.1, HIV (1&2) Antibody Rapid Negative 12/06/16 04:55: White Blood Count 9.5, Red Blood Count 2.07L, Hemoglobin 6.8*L, Hematocrit 19.5L , Mean Corpuscular Volume 94, Mean Corpuscular Hemoglobin 32.7H, Mean Corpuscular Hemoglobin Concent 34.8, Red Cell Distribution Width 13.8, Platelet Count 127L, Mean Platelet Volume 5.9L, Neutrophils (%) (Auto) , Lymphocytes (%) (Auto) , Monocytes (%) (Auto) , Eosinophils (%) (Auto) , Basophils (%) (Auto) , Neutrophils % (Manual) [Pending], Lymphocytes % (Manual) [Pending], Platelet Estimate [Pending], Platelet Morphology [Pending], Albumin/Globulin Ratio 1.1, Sodium Level 141, Potassium Level 4.7, Chloride Level 102, Carbon Dioxide Level 25, Anion Gap 14, Blood Urea Nitrogen 83#H, Creatinine 13.8H, Estimat Glomerular Filtration Rate 4.6, Glucose Level 100, Uric Acid 2.9L, Calcium Level 9.1, Phosphorus Level 4.3, Magnesium Level 2.0, Total Bilirubin 0.3, Gamma Glutamyl Transpeptidase 15, Aspartate Amino Transf (AST/SGOT) 6, Alanine Aminotransferase (ALT/SGPT) 5, Alkaline Phosphatase 40, Total Creatine Kinase 53 , C-Reactive Protein, Quantitative 1.8H, Pro-B-Type Natriuretic Peptide 3435H, Total Protein 5.4L, Albumin 2.9L, Globulin 2.5, Triglycerides Level 65, Cholesterol Level 107, LDL Cholesterol 56L, HDL Cholesterol 38, Cholesterol/HDL Ratio 2.8L, Thyroid Stimulating Hormone (TSH) 3.140 12/06/16 07:30: Urine Color [Pending], Urine Appearance [Pending], Urine pH [Pending], Urine Specific [place] [Pending], Urine Protein [Pending], Urine Glucose (UA) [Pending ], Urine Ketones [Pending], Urine Occult Blood [Pending], Urine Nitrite [Pending ], Urine Bilirubin [Pending], Urine Urobilinogen [Pending], Urine Leukocyte Esterase [Pending], Urine RBC [Pending], Urine WBC [Pending], Urine Squamous Epithelial Cells [Pending], Urine Bacteria [Pending] 12/06/16 07:40: Arterial Blood pH 7.431, Arterial Blood Partial Pressure CO2 36.2, Arterial Blood Partial Pressure O2 249.2H, Arterial Blood HCO3 23.5, Arterial Blood Oxygen Saturation 99.1H, Arterial Blood Base Excess -0.6, Chidi Test Positive Height (Feet): 6 Height (Inches): 0.00 Weight (Pounds): 150 General Appearance: other - NAD EENT: other - On vent- intubated Cardiovascular: regular rhythm, tachycardia Respiratory/Chest: decreased breath sounds Abdomen: distended CELIO CAREY Dec 06, 2016 08:34
[2016-12-06 08:41] LABS: APPEARANCE,URINE CLEAR; KETONES,URINE NEGATIVE (NEGATIVE); LEUKOCYTE ESTERASE ,URINE NEGATIVE (NEGATIVE); NITRITE,URINE NEGATIVE (NEGATIVE); PH,URINE 7 (4.5-8.0); PROTEIN,URINE 3+ (NEGATIVE); UROBILINOGEN,URINE NORMAL MG/DL (0.0-1.0)
[2016-12-06] MEDS ORDERED: Sensipar 30mg Tab ORAL SCH (09:00)
[2016-12-06 09:19] LABS: SQUAMOUS EPITHELIAL CELL,UR OCCASIONAL /LPF (NONE/OCC); WBC,URINE 0-2 /HPF (0 - 0)
--- NOTE | 2016-12-06 09:46 | Consultation ---
DATE OF CONSULTATION: 12/05/2016 HEMATOLOGY/ONCOLOGY CONSULTATION CONSULTING PHYSICIAN: Loco Cormier M.D. REQUESTING PHYSICIAN: Lynette Ziegler M.D. REASON FOR CONSULTATION: Evaluation of anemia. IDENTIFYING DATA: Dear Dr. Ziegler: The patient is a pleasant 51-year-old male with past medical history significant for end-stage renal disease on peritoneal dialysis, history of recent GI bleed, underwent cardiac stent placement, recently placed on aspirin and Plavix, at this time he presents with coffee-ground emesis as well as melena. He had a similar episode at [facility]. He had normal colonoscopy and endoscopy, which showed only gastritis. At this time, he was found to have severe anemia with hemoglobin of 6.2, therefore, hematology service was consulted for further evaluation and treatment. GI team was also consulted. The patient underwent EGD, which showed gastric mucosa with acute bleed, 2 mL of epinephrine injected. Coffee-ground emesis was noted . One unit of PRBC was transfused. The patient was transferred to the ICU. The patient getting dialysis. Past Medical History: CAD, GI bleed, end-stage renal disease, on peritoneal dialysis in ICU, is intubated. PAST SURGICAL HISTORY: None noted. Peritoneal dialysis placement. Medications: Amlodipine, Lipitor, Plavix, Colace, . Tylenol, albuterol, erythromycin, nitroglycerine, Zofran, pantoprazole, MiraLax, Levemir, . ALLERGIES: No known drug allergies. Review Of Systems: Constitutional: Some malaise and fatigue noted. Skin: No rashes, lumps, or itching. HEENT: No headache, hearing or vision changes. Breasts: No lumps, pain, or discharge. Pulmonary: No cough, sputum, or shortness of breath. Gastrointestinal: No nausea, vomiting, or diarrhea. Genitourinary: No dysuria, frequency, or urgency. Musculoskeletal: No joint swelling, muscle pain, or trauma. PHYSICAL EXAMINATION: GENERAL: The patient is in no acute distress. Vital Signs: Reviewed. Temperature 96.8 degrees Fahrenheit, blood pressure . PULMONARY: Decreased breath sounds. CARDIOVASCULAR: Regular rhythm. No S3 or S4. ABDOMEN: Soft, nontender, and nondistended. EXTREMITIES: 1+ edema. Laboratory Data: BUN 120 and creatinine 22. Total protein 5.8. Prothrombin 11. INR 1. WBC 9.5, hemoglobin 8, hematocrit 23, and platelet count 179,000. Normal differential. . ASSESSMENT AND PLAN: 1. Anemia. 2. Gastrointestinal bleed with gastritis history, underwent an EGD with esophageal bleed. Appreciate GI recommendation. 3. Anemia secondary to iron deficiency anemia. Workup has been ordered. 4. End-stage renal disease. 5. Peritoneal dialysis. 6. Coronary artery disease history with coronary angioplasty and . 7. Intubated status post procedure. 8. Anticoagulation at this time. 9. Monitor as per Cardiology service. 10. Plavix to be started. The patient was seen by Dr. Orozco. I appreciate this consultation. Loco Cormier M.D. DR: LELO JOB#: [id number] CC:
[2016-12-06 10:11] LABS: BAND NEUTROPHILS % (MANUAL) 0 % (0-8); BASOPHILS % (MANUAL) 0 % (0-2); EOSINOPHILS % (MANUAL) 0 % (0-3); HYPOCHROMASIA 1+; LYMPHOCYTES % (MANUAL) 14 % (20-45); NEUTROPHILS % (MANUAL) 83 % (45-75); PLATELET ESTIMATE DECREASED; PLATELET MORPHOLOGY NORMAL; TOTAL CELLS COUNTED 100
--- NOTE | 2016-12-06 10:13 | Diagnostic Imaging Report ---
Indication: DYSPNEA Technique: One view of the chest Comparison: 12/05/2016 image taken post dialysis catheter placement Findings: Right external jugular temporary dialysis catheter is again demonstrated. Stable satisfactory position of endotracheal tube. Lungs and pleural spaces remain clear. Heart remains borderline enlarged. Findings are unchanged Impression: Unchanged, over one day, findings as above.
--- NOTE | 2016-12-06 10:57 | Pre-Procedure Note/Attestation ---
Pre-Procedure Note/Attestation Complete Prior to Procedure Planned Procedure: not applicable Procedure Narrative: egd Indications for Procedure Pre-Operative Diagnosis: gib Attestation I attest that I discussed the nature of the procedure; its benefits; risks and complications; and alternatives (and the risks and benefits of such alternatives ), prior to the procedure, with the patient (or the patient's legal customer service representative). I attest that, if there was a reasonable possibility of needing a blood transfusion, the patient (or the patient's legal customer service representative) was given the [facility] standardized written summary, pursuant to the [place]uf[place] Blood Safety Act ([place] Health and Safety Code # 1645, as amended). I attest that I re-evaluated the patient just prior to the surgery and that there has been no change in the patient's H&P, except as documented below: ADAL ESTEVEZ Dec 06, 2016 10:57
[2016-12-06] MEDS: D5 1/2NS 1,000 ML IV SCH (11:30)
--- NOTE | 2016-12-06 11:43 | Endoscopy Procedure Note ---
Endoscopy Procedure Note Indication for Procedure: gib Procedures Performed: EGD Operative Findings/Diagnosis: gastritis Specimen: none Pt Tolerated Procedure Well: Yes Estimated Blood Loss: none Anesthesiologist: mike Anesthesia: MAC Implant(s) used?: No 50 yrs or older w/o bx or poly: Not Applicable 10yrs. F/U not recommended: Not Applicable ADAL ESTEVEZ Dec 06, 2016 11:43
--- NOTE | 2016-12-06 12:03 | Anethesia Preoperative Eval ---
Anesthesia Pre-op PMH/ROS General Date of Evaluation: Dec 06, 2016 Time of Evaluation: 11:27 Anesthesiologist: Tommy ASA Score: ASA 3 - 3E Mallampati Score Class I : Soft palate, uvula, fauces, pillars visible Class II: Soft palate, uvula, fauces visible Class III: Soft palate, base of uvula visible Class IV: Only hard plate visible Mallampati Classification: Class III Surgeon: Dee Dee Diagnosis: GI bleed Surgical Procedure: EGD Anesthesia History: none Family History: no anesthesia problems Allergies: Coded Allergies: No Known Allergies (Unverified , 12/04/16) Medications: see eMAR Past Medical History Cardiovascular: Denies: HTN, CAD, [place], valve dz, arrhythmia, other Pulmonary: Denies: asthma, COPD, ANOOP, other Gastrointestinal/Genitourinary: Reports: GERD Neurologic/Psychiatric: Denies: dementia, CVA, depression/anxiety, TIA, other Endocrine: Denies: DM, hypothyroidism, steroids, other HEENT: Denies: cataract (L), cataract (R), glaucoma, [place] (L), [place] (R), other Hematology/Immune: Reports: anemia, Denies: DVT, bleeding disorder, other Anesthesia Pre-op Phys. Exam Physician Exam Last Vital Signs Date Time Temp Pulse Resp B/P (MAP) Pulse Ox O2 Delivery O2 Flow Rate FiO2 12/06/16 11:00 98 16 153/83 100 Mechanical Ventilator 30 12/06/16 08:00 97.8 Constitutional: NAD Neurologic: CN 2-12 intact Cardiovascular: RRR Respiratory: CTA Gastrointestinal: S/NT/ND Airway Exam Mallampati Score: Class III MO: full ROM: full Teeth: intact Anesthesia Pre-op A/P Labs Hematology Test 12/05/16 15:07 12/05/16 18:50 12/06/16 04:55 White Blood Count 12.7 K/UL (4.8-10.8) H 13.4 K/UL (4.8-10.8) H 9.5 K/UL (4.8-10.8) Red Blood Count 2.74 M/UL (4.70-6.10) L 2.39 M/UL (4.70-6.10) L 2.07 M/UL (4.70-6.10) L Hemoglobin 8.5 G/DL (14.2-18.0) L 8.0 G/DL (14.2-18.0) L 6.8 G/DL (14.2-18.0) *L Hematocrit 25.6 % (42.0-52.0) L 22.1 % (42.0-52.0) L 19.5 % (42.0-52.0) L Mean Corpuscular Volume 93 FL (80-99) 93 FL (80-99) 94 FL (80-99) Mean Corpuscular Hemoglobin 31.1 PG (27.0-31.0) H 33.7 PG (27.0-31.0) H 32.7 PG (27.0-31.0) H Mean Corpuscular Hemoglobin Concent 33.3 G/DL (32.0-36.0) 36.4 G/DL (32.0-36.0) H 34.8 G/DL (32.0-36.0) Red Cell Distribution Width 13.0 % (11.6-14.8) 13.2 % (11.6-14.8) 13.8 % (11.6-14.8) Platelet Count 191 K/UL (150-450) 149 K/UL (150-450) L 127 K/UL (150-450) L Mean Platelet Volume 6.6 FL (6.5-10.1) 6.4 FL (6.5-10.1) L 5.9 FL (6.5-10.1) L Neutrophils (%) (Auto) 84.2 % (45.0-75.0) H % (45.0-75.0) % (45.0-75.0) Lymphocytes (%) (Auto) 8.1 % (20.0-45.0) L % (20.0-45.0) % (20.0-45.0) Monocytes (%) (Auto) 5.9 % (1.0-10.0) % (1.0-10.0) % (1.0-10.0) Eosinophils (%) (Auto) 0.5 % (0.0-3.0) % (0.0-3.0) % (0.0-3.0) Basophils (%) (Auto) 1.4 % (0.0-2.0) % (0.0-2.0) % (0.0-2.0) Differential Total Cells Counted 100 100 Neutrophils % (Manual) 79 % (45-75) H 83 % (45-75) H Lymphocytes % (Manual) 10 % (20-45) L 14 % (20-45) L Monocytes % (Manual) 9 % (1-10) 3 % (1-10) Eosinophils % (Manual) 1 % (0-3) 0 % (0-3) Basophils % (Manual) 0 % (0-2) 0 % (0-2) Band Neutrophils 1 % (0-8) 0 % (0-8) Platelet Estimate Decreased L Decreased L Platelet Morphology Normal Normal Hypochromasia 1+ 1+ Anisocytosis 1+ Reticulocyte Count 1.5 % (0.0-2.0) Coagulation Test 12/05/16 18:50 Fibrinogen 424 mg/dL (200-400) H Chemistry Test 12/05/16 18:50 12/06/16 04:55 Iron Level 166 ug/dL (59-158) H Total Iron Binding Capacity 213 ug/dL (250-400) L Percent Iron Saturation 78 % (15-50) H Unsaturated Iron Binding 47 ug/dL (112-346) L Soluble Transferrin Receptor Pending Ferritin 648 ng/mL (10-230) H Lactate Dehydrogenase 139 U/L (135-230) Total Protein (PEP) Pending Albumin (PEP) Pending Globulin (PEP) Pending Albumin/Globulin Ratio Pending 1.1 (1.0-2.7) Vnqxo-4-Czdzzlvny Pending Solvp-7-Yfgsicllz Pending Beta Globulins Pending Beta Gamma Globulin Pending PEP Abnormal Protein Bands Pending Protein Electrophoresis Interpret Pending Vitamin B12 Level 490 pg/mL (211-946) Folate 3.7 ng/mL (>3.0) Sodium Level 141 mEQ/L (135-145) Potassium Level 4.7 mEQ/L (3.4-4.9) Chloride Level 102 mEQ/L (98-107) Carbon Dioxide Level 25 mEQ/L (20-30) Anion Gap 14 (5-15) Blood Urea Nitrogen 83 mg/dL (7-23) #H Creatinine 13.8 mg/dL (0.7-1.2) H Estimat Glomerular Filtration Rate 4.6 mL/min (>60) Glucose Level 100 mg/dL (74-106) Uric Acid 2.9 mg/dL (3.0-7.5) L Calcium Level 9.1 mg/dL (8.6-10.2) Phosphorus Level 4.3 mg/dL (2.5-4.8) Magnesium Level 2.0 mg/dL (1.7-2.5) Total Bilirubin 0.3 mg/dL (0.0-1.2) Gamma Glutamyl Transpeptidase 15 U/L (8-61) Aspartate Amino Transf (AST/SGOT) 6 U/L (5-40) Alanine Aminotransferase (ALT/SGPT) 5 U/L (3-41) Alkaline Phosphatase 40 U/L (40-129) Total Creatine Kinase 53 U/L (38-174) C-Reactive Protein, Quantitative 1.8 mg/dL (< 0.5) H Pro-B-Type Natriuretic Peptide 3435 pg/mL (0-125) H Total Protein 5.4 g/dL (6.6-8.7) L Albumin 2.9 g/dL (3.5-5.2) L Globulin 2.5 g/dL Triglycerides Level 65 mg/dL (< 150) Cholesterol Level 107 mg/dL (< 200) LDL Cholesterol 56 mg/dL (60-99) L HDL Cholesterol 38 mg/dL (> 60) Cholesterol/HDL Ratio 2.8 (3.3-4.4) L Thyroid Stimulating Hormone (TSH) 3.140 uIU/mL (0.300-4.500) Risk Assessment & Plan Assessment: PT already intubated in ICU bed [facility]. Vent setting reviewed. Plan: MAC Status Change Before Surgery: No Pre-Antibiotics Given Within 1 Hr of Incision: Yamilet Julian CRNA Dec 06, 2016 12:03
--- NOTE | 2016-12-06 12:04 | Immediate Post-Op Evaluation ---
Immediate Post-Op Evalulation Immediate Post-Op Evalulation Procedure: EGD Date of Evaluation: Dec 06, 2016 Time of Evaluation: 11:50 IV Fluids: 10 ml Blood Pressure Systolic: 123 Blood Pressure Diastolic: 79 Pulse Rate: 98 Respiratory Rate: 14 O2 Sat by Pulse Oximetry: 99 Nausea: No Vomiting: No Patient Status: awake, reacts, patent, ventilated Hydration Status: adequate Given Within 1 Hr of Incision: Yamilet Julian CRNA Dec 06, 2016 12:04
--- NOTE | 2016-12-06 12:06 | 48 Hour Post Anesthesia Eval ---
Post Anesthesia Evaluation Procedure: EGD Date of Evaluation: Dec 06, 2016 Time of Evaluation: 12:05 Blood Pressure Systolic: 130 0: 78 Pulse Rate: 105 Respiratory Rate: 16 Temperature (Fahrenheit): 97.8 O2 Sat by Pulse Oximetry: 99 Airway: patent Nausea: No Vomiting: No Pain Intensity: 0 Hydration Status: adequate Mental Status/LOC: patient returned to baseline Follow-up care needed: patient intructions given Yamilet Sanders CRNA Dec 06, 2016 12:05
--- NOTE | 2016-12-06 12:55 | Consultation ---
Consult Note Assessment/Plan dict assuming care SCAR BARAHONA Dec 06, 2016 12:55
--- NOTE | 2016-12-06 13:03 | General Progress Note ---
Assessment/Plan Assessment/Plan 1. Anemia secondary to chronic disease as well as GI bleed. Work up has been reviewed, no evidence of iron deficiency --> s/p multiple transfusions --> monitor counts 2. Gastrointestinal bleed with gastritis history, underwent an EGD with esophageal bleed. Appreciate GI recommendations. --> endoclips placed at site of bleed 4. End-stage renal disease. 5. Peritoneal dialysis. 6. Coronary artery disease history with coronary angioplasty. 7. Intubated status post procedure. 8. Anticoagulation at this time. 9. Monitor as per Cardiology service. Subjective Constitutional: Reports: no symptoms HEENT: Reports: no symptoms Cardiovascular: Reports: no symptoms Respiratory: Reports: no symptoms Gastrointestinal/Abdominal: Reports: no symptoms Genitourinary: Reports: no symptoms Neurologic/Psychiatric: Reports: no symptoms Endocrine: Reports: no symptoms Hematologic/Lymphatic: Reports: anemia Allergies: Coded Allergies: No Known Allergies (Unverified , 12/04/16) Subjective s/p egd, severely anemic, no nausea, f/c Objective Last 24 Hour Vital Signs Date Time Temp Pulse Resp B/P (MAP) Pulse Ox O2 Delivery O2 Flow Rate FiO2 12/06/16 12:05 Nasal Cannula 2.0 28 12/06/16 12:05 105 16 99 12/06/16 12:04 98 14 99 12/06/16 11:00 98 16 153/83 100 Mechanical Ventilator 30 12/06/16 10:42 107 14 30 12/06/16 10:00 97 15 161/96 100 Mechanical Ventilator 30 12/06/16 09:13 30 12/06/16 09:12 96 18 50 12/06/16 09:00 104 14 143/85 100 Mechanical Ventilator 30 12/06/16 08:00 97.8 102 16 146/85 100 Mechanical Ventilator 50 12/06/16 08:00 50 12/06/16 08:00 86 12/06/16 07:26 172/106 12/06/16 07:00 92 15 172/106 100 Mechanical Ventilator 50 12/06/16 07:00 87 14 50 12/06/16 06:00 92 15 155/94 100 Mechanical Ventilator 50 12/06/16 05:09 96 17 50 12/06/16 05:00 88 15 151/96 100 Mechanical Ventilator 50 12/06/16 04:00 98.1 100 16 141/83 100 Mechanical Ventilator 50 12/06/16 04:00 50 12/06/16 04:00 91 12/06/16 03:30 90 14 50 12/06/16 03:00 96 15 173/104 100 Mechanical Ventilator 50 12/06/16 02:27 174/96 12/06/16 02:00 100 15 160/96 100 Mechanical Ventilator 50 12/06/16 01:30 86 13 50 12/06/16 01:00 83 15 160/99 100 Mechanical Ventilator 50 12/06/16 00:00 98.4 93 20 155/97 100 Mechanical Ventilator 50 12/06/16 00:00 50 12/06/16 00:00 88 12/05/16 23:30 89 15 50 12/05/16 23:00 90 15 151/93 100 Mechanical Ventilator 50 12/05/16 22:00 95 15 144/93 100 Mechanical Ventilator 50 12/05/16 21:21 111 22 50 12/05/16 21:00 94 15 158/98 100 Mechanical Ventilator 50 12/05/16 20:39 Mechanical Ventilator 50 12/05/16 20:37 98.0 100 16 134/88 100 Mechanical Ventilator 50 12/05/16 20:00 98.0 97 19 131/87 100 Mechanical Ventilator 50 12/05/16 20:00 50 12/05/16 20:00 106 12/05/16 19:30 100 15 50 12/05/16 19:00 111 18 86/59 100 Mechanical Ventilator 50 12/05/16 18:00 117 15 109/83 99 Mechanical Ventilator 50 12/05/16 17:17 108 18 50 12/05/16 17:00 111 19 148/100 99 Mechanical Ventilator 50 12/05/16 16:40 Mechanical Ventilator 50 12/05/16 16:11 50 12/05/16 16:00 97.6 118 19 144/104 99 Mechanical Ventilator 50 17 16:00 118 12/05/16 15:00 118 23 50 12/05/16 14:00 116 19 85/25 99 Mechanical Ventilator 50 17 13:26 105 14 50 12/05/16 13:00 108 19 139/105 99 Mechanical Ventilator 50 Intake and Output 12/06/16 12/07/16 19:00 07:00 Intake Total 75 ml Output Total 60 ml Balance 15 ml IV Total 75 ml Output Urine Total 60 ml Laboratory Tests 12/05/16 13:00: Arterial Blood pH 7.362, Arterial Blood Partial Pressure CO2 37.9, Arterial Blood Partial Pressure O2 222.5H, Arterial Blood HCO3 21.0L, Arterial Blood Oxygen Saturation 98.8H, Arterial Blood Base Excess -4.0, Chidi Test Positive 12/05/16 15:07: White Blood Count 12.7H, Red Blood Count 2.74L, Hemoglobin 8.5L, Hematocrit 25.6L, Mean Corpuscular Volume 93, Mean Corpuscular Hemoglobin 31.1H, Mean Corpuscular Hemoglobin Concent 33.3, Red Cell Distribution Width 13.0, Platelet Count 191, Mean Platelet Volume 6.6, Neutrophils (%) (Auto) 84.2H, Lymphocytes ( %) (Auto) 8.1L, Monocytes (%) (Auto) 5.9, Eosinophils (%) (Auto) 0.5, Basophils (%) (Auto) 1.4 12/05/16 18:50: White Blood Count 13.4H, Red Blood Count 2.39L, Hemoglobin 8.0L, Hematocrit 22.1L, Mean Corpuscular Volume 93, Mean Corpuscular Hemoglobin 33.7H, Mean Corpuscular Hemoglobin Concent 36.4H, Red Cell Distribution Width 13.2, Platelet Count 149L, Mean Platelet Volume 6.4L, Neutrophils (%) (Auto) , Lymphocytes (%) (Auto) , Monocytes (%) (Auto) , Eosinophils (%) (Auto) , Basophils (%) (Auto) , Differential Total Cells Counted 100, Neutrophils % ( Manual) 79H, Lymphocytes % (Manual) 10L, Monocytes % (Manual) 9, Eosinophils % ( Manual) 1, Basophils % (Manual) 0, Band Neutrophils 1, Platelet Estimate DecreasedL, Platelet Morphology Normal, Hypochromasia 1+, Anisocytosis 1+, Reticulocyte Count 1.5, Fibrinogen 424H, Iron Level 166H, Total Iron Binding Capacity 213L, Percent Iron Saturation 78H, Unsaturated Iron Binding 47L, Soluble Transferrin Receptor [Pending], Ferritin 648H, Lactate Dehydrogenase 139 , Total Protein (PEP) [Pending], Albumin (PEP) [Pending], Globulin (PEP) [ Pending], Albumin/Globulin Ratio [Pending], [id number]-[id number] [Pending], Alpha-2 -Globulins [Pending], Beta Globulins [Pending], Beta Gamma Globulin [Pending], PEP Abnormal Protein Bands [Pending], Protein Electrophoresis Interpret [Pending ], Vitamin B12 Level 490, Folate 3.7, Hepatitis A IgM Antibody Negative, Hepatitis B Surface Antigen Negative, Hepatitis B Core IgM Antibody Negative, Hepatitis C Antibody <0.1, HIV (1&2) Antibody Rapid Negative 12/06/16 04:55: White Blood Count 9.5, Red Blood Count 2.07L, Hemoglobin 6.8*L, Hematocrit 19.5L , Mean Corpuscular Volume 94, Mean Corpuscular Hemoglobin 32.7H, Mean Corpuscular Hemoglobin Concent 34.8, Red Cell Distribution Width 13.8, Platelet Count 127L, Mean Platelet Volume 5.9L, Neutrophils (%) (Auto) , Lymphocytes (%) (Auto) , Monocytes (%) (Auto) , Eosinophils (%) (Auto) , Basophils (%) (Auto) , Differential Total Cells Counted 100, Neutrophils % (Manual) 83H, Lymphocytes % (Manual) 14L, Monocytes % (Manual) 3, Eosinophils % (Manual) 0, Basophils % ( Manual) 0, Band Neutrophils 0, Platelet Estimate DecreasedL, Platelet Morphology Normal, Hypochromasia 1+, Albumin/Globulin Ratio 1.1, Sodium Level 141, Potassium Level 4.7, Chloride Level 102, Carbon Dioxide Level 25, Anion Gap 14, Blood Urea Nitrogen 83#H, Creatinine 13.8H, Estimat Glomerular Filtration Rate 4.6, Glucose Level 100, Uric Acid 2.9L, Calcium Level 9.1, Phosphorus Level 4.3, Magnesium Level 2.0, Total Bilirubin 0.3, Gamma Glutamyl Transpeptidase 15, Aspartate Amino Transf (AST/SGOT) 6, Alanine Aminotransferase (ALT/SGPT) 5, Alkaline Phosphatase 40, Total Creatine Kinase 53 , C-Reactive Protein, Quantitative 1.8H, Pro-B-Type Natriuretic Peptide 3435H, Total Protein 5.4L, Albumin 2.9L, Globulin 2.5, Triglycerides Level 65, Cholesterol Level 107, LDL Cholesterol 56L, HDL Cholesterol 38, Cholesterol/HDL Ratio 2.8L, Thyroid Stimulating Hormone (TSH) 3.140 12/06/16 07:30: Urine Color Pale yellow, Urine Appearance Clear, Urine pH 7, Urine Specific [place] 1.010, Urine Protein 3+H, Urine Glucose (UA) Negative, Urine Ketones Negative, Urine Occult Blood 1+H, Urine Nitrite Negative, Urine Bilirubin Negative, Urine Urobilinogen Normal, Urine Leukocyte Esterase Negative, Urine RBC 2-4H, Urine WBC 0-2, Urine Squamous Epithelial Cells Occasional, Urine Bacteria None 12/06/16 07:40: Arterial Blood pH 7.431, Arterial Blood Partial Pressure CO2 36.2, Arterial Blood Partial Pressure O2 249.2H, Arterial Blood HCO3 23.5, Arterial Blood Oxygen Saturation 99.1H, Arterial Blood Base Excess -0.6, Chidi Test Positive Height (Feet): 6 Height (Inches): 0.00 Weight (Pounds): 150 General Appearance: no apparent distress EENT: normal ENT inspection Neck: normal alignment Cardiovascular: normal rate Respiratory/Chest: no accessory muscle use Abdomen: no organomegaly, no mass Neurologic: clinical reimbursement specialist II-XII grossly normal Skin: warm/dry Loco Cormier Dec 06, 2016 13:03
[2016-12-06] MEDS ORDERED: D5NS 1,000 ML IV SCH (14:30)
[2016-12-06] MEDS ORDERED: Tubing IV Blood Pump IV ONE (15:14)
[2016-12-06] MEDS ORDERED: NS 275ml ONE (15:14)
[2016-12-06] MEDS ORDERED: Tubing IV Secondary IV ONE (15:14)
[2016-12-06] MEDS ORDERED: D5NS 1000ml IV ONE (15:17)
[2016-12-06] MEDS ORDERED: Aminocaproic Acid Inj 5,000 MG in NS 110 ML IV ONE (15:30)
--- NOTE | 2016-12-06 17:50 | Cardiology Progress Note ---
Assessment/Plan Assessment/Plan 1. Acute gastrointestinal bleed. 2. Acute anemia. 3. History of gastrointestinal bleed and anemia, requiring clipping on several occasions. 4. End-stage renal disease, on home peritoneal dialysis. 5. Sinus tachycardia secondary to anemia. 6. Hypertension. 7. Anemia of chronic disease. 8. Hyperlipidemia. 9. Secondary hyperparathyroidism. 10. History of cervical laminectomy. 11. FERNANDO inhibitor as well as carvedilol allergic reactions. 12. Coronary artery disease, status post recent stenting one week ago or so at [facility]. d/w dr weinberg had repeat endoscopy no source of bleeding found however hgb is stuiill quite low will starton ecotrin afte rprbc tx of 1 unti will observe hgb tomorrow if nto bled will then give ecotrin and plavix as of tomorow keep pt in icu for observation over ntie still Subjective Cardiovascular: Denies: chest pain, lightheadedness, palpitations Respiratory: Denies: shortness of breath Gastrointestinal/Abdominal: Denies: abdominal pain Genitourinary: Denies: burning Objective Last 24 Hour Vital Signs Date Time Temp Pulse Resp B/P (MAP) Pulse Ox O2 Delivery O2 Flow Rate FiO2 12/06/16 17:00 88 17 155/88 100 Nasal Cannula 2.0 12/06/16 16:00 98 12/06/16 16:00 98.1 98 16 148/115 100 Nasal Cannula 2.0 12/06/16 15:00 95 17 167/95 100 Nasal Cannula 2.0 12/06/16 14:00 92 17 159/90 100 Nasal Cannula 2.0 12/06/16 13:00 98 17 154/95 100 Nasal Cannula 2.0 12/06/16 12:05 Nasal Cannula 2.0 28 12/06/16 12:05 105 16 99 12/06/16 12:04 98 14 99 12/06/16 12:01 100 Nasal Cannula 2.0 28 12/06/16 12:00 98.0 98 16 123/79 100 Mechanical Ventilator 30 12/06/16 12:00 Nasal Cannula 2.0 28 12/06/16 12:00 91 12/06/16 12:00 30 12/06/16 11:00 98 16 153/83 100 Mechanical Ventilator 30 12/06/16 10:42 107 14 30 12/06/16 10:00 97 15 161/96 100 Mechanical Ventilator 30 2017 09:13 30 2017 09:12 96 18 50 12/06/16 09:00 104 14 143/85 100 Mechanical Ventilator 30 12/06/16 08:00 97.8 102 16 146/85 100 Mechanical Ventilator 50 2017 08:00 50 2017 08:00 86 12/06/16 07:26 172/106 12/06/16 07:00 92 15 172/106 100 Mechanical Ventilator 50 12/06/16 07:00 87 14 50 12/06/16 06:00 92 15 155/94 100 Mechanical Ventilator 50 12/06/16 05:09 96 17 50 12/06/16 05:00 88 15 151/96 100 Mechanical Ventilator 50 12/06/16 04:00 98.1 100 16 141/83 100 Mechanical Ventilator 50 12/06/16 04:00 50 12/06/16 04:00 91 12/06/16 03:30 90 14 50 12/06/16 03:00 96 15 173/104 100 Mechanical Ventilator 50 12/06/16 02:27 174/96 12/06/16 02:00 100 15 160/96 100 Mechanical Ventilator 50 12/06/16 01:30 86 13 50 12/06/16 01:00 83 15 160/99 100 Mechanical Ventilator 50 12/06/16 00:00 98.4 93 20 155/97 100 Mechanical Ventilator 50 12/06/16 00:00 50 12/06/16 00:00 88 12/05/16 23:30 89 15 50 17 23:00 90 15 151/93 100 Mechanical Ventilator 50 17 22:00 95 15 144/93 100 Mechanical Ventilator 50 17 21:21 111 22 50 12/05/17 21:00 94 15 158/98 100 Mechanical Ventilator 50 17 20:39 Mechanical Ventilator 50 12/05/17 20:37 98.0 100 16 134/88 100 Mechanical Ventilator 50 12/05/17 20:00 98.0 97 19 131/87 100 Mechanical Ventilator 50 19/17 20:00 50 19/17 20:00 106 19/17 19:30 100 15 50 19/17 19:00 111 18 86/59 100 Mechanical Ventilator 50 9/19/17 18:00 117 15 109/83 99 Mechanical Ventilator 50 General Appearance: no apparent distress, alert Neck: supple Cardiovascular: normal rate, regular rhythm Respiratory/Chest: lungs clear, normal breath sounds Abdomen: normal bowel sounds, non tender, soft Extremities: non-tender, no swelling Intake and Output 12/06/16 12/07/16 19:00 07:00 Intake Total 860 ml Output Total 60 ml Balance 800 ml IV Total 610 ml Blood Product 250 ml Output Urine Total 60 ml Laboratory Tests Test 12/05/16 18:50 12/06/16 04:55 12/06/16 07:30 12/06/16 07:40 White Blood Count 13.4 K/UL (4.8-10.8) H 9.5 K/UL (4.8-10.8) Red Blood Count 2.39 M/UL (4.70-6.10) L 2.07 M/UL (4.70-6.10) L Hemoglobin 8.0 G/DL (14.2-18.0) L 6.8 G/DL (14.2-18.0) *L Hematocrit 22.1 % (42.0-52.0) L 19.5 % (42.0-52.0) L Mean Corpuscular Volume 93 FL (80-99) 94 FL (80-99) Mean Corpuscular Hemoglobin 33.7 PG (27.0-31.0) H 32.7 PG (27.0-31.0) H Mean Corpuscular Hemoglobin Concent 36.4 G/DL (32.0-36.0) H 34.8 G/DL (32.0-36.0) Red Cell Distribution Width 13.2 % (11.6-14.8) 13.8 % (11.6-14.8) Platelet Count 149 K/UL (150-450) L 127 K/UL (150-450) L Mean Platelet Volume 6.4 FL (6.5-10.1) L 5.9 FL (6.5-10.1) L Neutrophils (%) (Auto) % (45.0-75.0) % (45.0-75.0) Lymphocytes (%) (Auto) % (20.0-45.0) % (20.0-45.0) Monocytes (%) (Auto) % (1.0-10.0) % (1.0-10.0) Eosinophils (%) (Auto) % (0.0-3.0) % (0.0-3.0) Basophils (%) (Auto) % (0.0-2.0) % (0.0-2.0) Differential Total Cells Counted 100 100 Neutrophils % (Manual) 79 % (45-75) H 83 % (45-75) H Lymphocytes % (Manual) 10 % (20-45) L 14 % (20-45) L Monocytes % (Manual) 9 % (1-10) 3 % (1-10) Eosinophils % (Manual) 1 % (0-3) 0 % (0-3) Basophils % (Manual) 0 % (0-2) 0 % (0-2) Band Neutrophils 1 % (0-8) 0 % (0-8) Platelet Estimate Decreased L Decreased L Platelet Morphology Normal Normal Hypochromasia 1+ 1+ Anisocytosis 1+ Reticulocyte Count 1.5 % (0.0-2.0) Fibrinogen 424 mg/dL (200-400) H Iron Level 166 ug/dL (59-158) H Total Iron Binding Capacity 213 ug/dL (250-400) L Percent Iron Saturation 78 % (15-50) H Unsaturated Iron Binding 47 ug/dL (112-346) L Soluble Transferrin Receptor Pending Ferritin 648 ng/mL (10-230) H Lactate Dehydrogenase 139 U/L (135-230) Total Protein (PEP) Pending Albumin (PEP) Pending Globulin (PEP) Pending Albumin/Globulin Ratio Pending 1.1 (1.0-2.7) Ljegp-0-Tlusicxyn Pending Uznva-9-Khrduhsif Pending Beta Globulins Pending Beta Gamma Globulin Pending PEP Abnormal Protein Bands Pending Protein Electrophoresis Interpret Pending Vitamin B12 Level 490 pg/mL (211-946) Folate 3.7 ng/mL (>3.0) Hepatitis A IgM Antibody Negative (Negative) Hepatitis B Surface Antigen Negative (Negative) Hepatitis B Core IgM Antibody Negative (Negative) Hepatitis C Antibody <0.1 s/co ratio HIV (1&2) Antibody Rapid Negative (NEGATIVE) Sodium Level 141 mEQ/L (135-145) Potassium Level 4.7 mEQ/L (3.4-4.9) Chloride Level 102 mEQ/L (98-107) Carbon Dioxide Level 25 mEQ/L (20-30) Anion Gap 14 (5-15) Blood Urea Nitrogen 83 mg/dL (7-23) #H Creatinine 13.8 mg/dL (0.7-1.2) H Estimat Glomerular Filtration Rate 4.6 mL/min (>60) Glucose Level 100 mg/dL (74-106) Uric Acid 2.9 mg/dL (3.0-7.5) L Calcium Level 9.1 mg/dL (8.6-10.2) Phosphorus Level 4.3 mg/dL (2.5-4.8) Magnesium Level 2.0 mg/dL (1.7-2.5) Total Bilirubin 0.3 mg/dL (0.0-1.2) Gamma Glutamyl Transpeptidase 15 U/L (8-61) Aspartate Amino Transf (AST/SGOT) 6 U/L (5-40) Alanine Aminotransferase (ALT/SGPT) 5 U/L (3-41) Alkaline Phosphatase 40 U/L (40-129) Total Creatine Kinase 53 U/L (38-174) C-Reactive Protein, Quantitative 1.8 mg/dL (< 0.5) H Pro-B-Type Natriuretic Peptide 3435 pg/mL (0-125) H Total Protein 5.4 g/dL (6.6-8.7) L Albumin 2.9 g/dL (3.5-5.2) L Globulin 2.5 g/dL Triglycerides Level 65 mg/dL (< 150) Cholesterol Level 107 mg/dL (< 200) LDL Cholesterol 56 mg/dL (60-99) L HDL Cholesterol 38 mg/dL (> 60) Cholesterol/HDL Ratio 2.8 (3.3-4.4) L Thyroid Stimulating Hormone (TSH) 3.140 uIU/mL (0.300-4.500) Urine Color Pale yellow Urine Appearance Clear Urine pH 7 (4.5-8.0) Urine Specific [place] 1.010 (1.005-1.035) Urine Protein 3+ (NEGATIVE) H Urine Glucose (UA) Negative (NEGATIVE) Urine Ketones Negative (NEGATIVE) Urine Occult Blood 1+ (NEGATIVE) H Urine Nitrite Negative (NEGATIVE) Urine Bilirubin Negative (NEGATIVE) Urine Urobilinogen Normal MG/DL (0.0-1.0) Urine Leukocyte Esterase Negative (NEGATIVE) Urine RBC 2-4 /HPF (0 - 0) H Urine WBC 0-2 /HPF (0 - 0) Urine Squamous Epithelial Cells Occasional /LPF Urine Bacteria None /HPF (NONE) Arterial Blood pH 7.431 (7.350-7.450) Arterial Blood Partial Pressure CO2 36.2 mmHg (35.0-45.0) Arterial Blood Partial Pressure O2 249.2 mmHg (75.0-100.0) H Arterial Blood HCO3 23.5 mmol/L (22.0-26.0) Arterial Blood Oxygen Saturation 99.1 % (92.0-98.0) H Arterial Blood Base Excess -0.6 Chidi Test Positive KEV CORNEJO Dec 06, 2016 17:50
[2016-12-06] MEDS ORDERED: Aspirin EC 81mg tab ORAL ONE (18:00)
--- NOTE | 2016-12-06 22:45 | Procedure Note ---
DATE OF PROCEDURE: 12/06/2016 SURGEON: Khai Funez M.D. PROCEDURE: Upper endoscopy. ANESTHESIA: Per Tommy BURROUGHS INSTRUMENT: Olympus adult flexible upper endoscope. INDICATION: Followup upper GI bleeding yesterday. Reason for Procedure: The procedure, risks, benefits, and possible consequences, including hemorrhage, aspiration, perforation and infection, and alternative treatments, were explained to the patient/legal guardian by Dr. Khai Funez and the patient/legal guardian understood and accepted these risks. History: This is a 51-year-old male with recent cardiac stent had a massive GI bleeding yesterday requiring hemostasis and intubation. Today, Cardiology want to start him on anticoagulation, we just wanted to do a second look to make sure there is no re-bleeding before anticoagulation. Procedure In Detail: After informed consent was obtained and the patient was adequately sedated, Olympus upper endoscope was advanced from mouth into the second portion of the duodenum and retroflexion was performed in the stomach.. The patient had two clips that I put yesterday in the body of the stomach in place. There was another one across from that one mostly from prior endoscopies done at another hospital. There was no active GI bleeding. No esophageal bleeding. At this time, the scope was removed and procedure was terminated. The patient tolerated the procedure very well without any complication. Khai Funez M.D. DR: CHAPITO JOB#: [id number] CC:
[2016-12-07] VITALS (24 sets, daily range): BP systolic 122–177; BP diastolic 64–105
--- NOTE | 2016-12-07 00:45 | Consultation ---
DATE OF CONSULTATION: 12/06/2016 PULMONARY CONSULTATION History Of Present Illness: The patient is a very pleasant 51-year-old man who was admitted because of upper GI bleeding. He underwent endoscopy yesterday by Dr. Funez and had some respiratory distress following the procedure and was left intubated. He was found to have Dieulafoy lesions and clips were placed. The patient remained intubated and was transferred to intensive care on a ventilator. Late yesterday, I was called by the admitting department to advise me that the patient is under an insurance plan, for which I am the designated hospitalist and his care would be transferred to me. I came to see the patient today and found him alert and responding appropriately. He is breathing adequately and no longer vomiting and extubation was recommended. However, he is undergoing another endoscopy today and we will hold extubation until following this. Past Medical History: Recurrent upper GI bleeding, chronic kidney disease on peritoneal dialysis, but now planning for hemodialysis as we do not do peritoneal dialysis at [place]. He has had coronary heart disease with recent stent placed. He is being evaluated for kidney transplant. He has hypertension and hyperlipidemia and recent cervical spine surgery. He may have some congestive heart failure. He has hyperparathyroidism of kidney disease. ALLERGIES: FERNANDO inhibitors and possibly carvedilol. Social History: He is a past smoker. He may have used cocaine many years ago. REVIEW OF SYSTEMS: Cannot be obtained. PHYSICAL EXAMINATION: General: The patient is alert and responding appropriately on the ventilator with an oral endotracheal tube. VITAL SIGNS: Stable. Blood pressure is slightly elevated. HEENT: Head is normocephalic. NECK: No jugular venous distention. CHEST: Clear. CARDIAC: Rhythm is regular. ABDOMEN: Soft and nontender. Liver and spleen are not enlarged. EXTREMITIES: No clubbing, cyanosis, or edema. LABORATORY STUDIES: Reviewed. IMPRESSIONS: 1. Acute upper gastrointestinal bleed. 2. Acute anemia, severe. 3. Postprocedure respiratory failure. 4. End-stage renal disease, on peritoneal dialysis. 5. Hypertension. 6. Hyperlipidemia. 7. Coronary heart disease, status post recent stent. Plan: The patient will undergo repeat endoscopy. Transfusions will be given as needed. If he is stable following this procedure, then he will be extubated. Cardiology will continue to follow the patient. Rod Hanley M.D. DR: JESSICA JOB#: [id number] CC: Rod Hanley M.D.; Fax#: [phone]
[2016-12-07] MEDS: NS IVPB SCH ×3 (01:56→18:59)
[2016-12-07] MEDS: ERYTHROMYCIN IVPB SCH ×3 (01:56→18:59)
[2016-12-07 05:34] LABS: A/G RATIO 1.4 (0.7-1.7); ABNORMAL PROTEIN BAND 1 Not Observed g/dL (Not Observed); ALBUMIN 3.4 g/dL (2.9-4.4); ALPHA-1 GLOBULIN 0.2 g/dL (0.0-0.4); ALPHA-2 GLOBULIN 0.6 g/dL (0.4-1.0); BETA GLOBULIN 0.6 g/dL (0.7-1.3); GAMMA GLOBULIN 0.9 g/dL (0.4-1.8); GLOBULIN, TOTAL 2.4 g/dL (2.2-3.9); TOTAL PROTEIN 5.8 g/dL (6.0-8.5)
[2016-12-07 05:53] LABS: BASOPHILS % (AUTO) 1.3 % (0.0-2.0); EOSINOPHILS % (AUTO) 3.9 % (0.0-3.0); LYMPHOCYTES % (AUTO) 13.6 % (20.0-45.0); MEAN CORPUSCULAR HEMOGLOBIN 31.9 PG (27.0-31.0); MEAN CORPUSCULAR HGB CONC 33.7 G/DL (32.0-36.0); MEAN CORPUSCULAR VOLUME 95 FL (80-99); MEAN PLATELET VOLUME 6.7 FL (6.5-10.1); MONOCYTES % (AUTO) 7.1 % (1.0-10.0); NEUTROPHILS % (AUTO) 74.1 % (45.0-75.0); PLATELET COUNT 130 K/UL (150-450); RED BLOOD COUNT 2.56 M/UL (4.70-6.10); RED CELL DISTRIBUTION WIDTH 13.4 % (11.6-14.8); WHITE BLOOD COUNT 6.6 K/UL (4.8-10.8)
[2016-12-07 06:18] LABS: ALBUMIN/GLOBULIN RATIO 1.1 (1.0-2.7); CALCIUM 9.3 mg/dL (8.6-10.2); CREATININE 15.3 mg/dL (0.7-1.2); GLOMERULAR FILTRATION RATE 4.1 mL/min (>60); PHOSPHORUS 5.7 mg/dL (2.5-4.8); TOTAL PROTEIN 5.4 g/dL (6.6-8.7)
[2016-12-07] MEDS: Pantoprazole 80 MG in NS 250 ML IV SCH ×2 (06:56→16:00)
[2016-12-07] MEDS: D5 1/2NS 1,000 ML IV SCH (07:49)
[2016-12-07] MEDS: Sensipar 30mg Tab ORAL SCH (08:37)
[2016-12-07] MEDS: Renvela 800mg Pkt ORAL SCH ×3 (08:37→18:38)
[2016-12-07] MEDS ORDERED: Aspirin Baby 81mg ORAL SCH (09:00)
--- NOTE | 2016-12-07 11:21 | GI Progress Note ---
Assessment/Plan Problems: (1) Anemia ICD Codes: D64.9 - Anemia, unspecified SNOMED: 111374589 Qualifiers: Qualified Codes: D64.9 - Anemia, unspecified (2) Gastrointestinal hemorrhage ICD Codes: K92.2 - Gastrointestinal hemorrhage, unspecified SNOMED: 33306209 Qualifiers: Qualified Codes: K92.2 - Gastrointestinal hemorrhage, unspecified (3) Peritoneal dialysis status ICD Codes: Z99.2 - Dependence on renal dialysis SNOMED: 830355723 (4) Hemorrhagic shock SNOMED: 310784 Status: progressing Status Narrative Discussed with Dr. Funez. Assessment/Plan S/P EGD x 2 - #1. Active bleeding in the stomach from a Dieulafoy lesion in the midbody of the stomach, status post hemostasis with two Hemoclip placement. - #2. There was no active GI bleeding. No esophageal bleeding. Hepatitis panel >> negative Plan: CLD today cont ppi gtt monitor H&H, prn transfusions plavix to be restarted per cardiology fu labs Subjective Gastrointestinal/Abdominal: Reports: abdominal pain Subjective feels better Objective Last 24 Hour Vital Signs Date Time Temp Pulse Resp B/P (MAP) Pulse Ox O2 Delivery O2 Flow Rate FiO2 12/07/16 11:00 78 14 156/93 100 Nasal Cannula 2.0 12/07/16 10:09 171/99 12/07/16 10:00 80 14 171/99 100 Nasal Cannula 2.0 12/07/16 09:00 72 14 162/81 100 Nasal Cannula 2.0 12/07/16 08:00 74 12/07/16 08:00 98.5 71 14 169/93 100 Nasal Cannula 2.0 12/07/16 07:15 76 16 Nasal Cannula 2.0 12/07/16 07:14 Nasal Cannula 2.0 12/07/16 07:13 100 Nasal Cannula 2.0 12/07/16 07:00 77 14 168/64 100 Nasal Cannula 2.0 12/07/16 06:00 77 14 168/91 100 Nasal Cannula 2.0 12/07/16 05:00 85 14 160/93 100 Nasal Cannula 2.0 12/07/16 04:00 98.3 85 14 154/78 100 Nasal Cannula 2.0 12/07/16 04:00 85 12/07/16 03:00 84 15 155/86 100 Nasal Cannula 2.0 12/07/16 02:00 83 15 168/93 100 Nasal Cannula 2.0 12/07/16 01:00 82 19 166/93 98 Nasal Cannula 2.0 12/07/16 00:00 98.6 97 16 140/78 94 Nasal Cannula 2.0 12/07/16 00:00 85 12/06/16 23:00 94 15 131/87 94 Nasal Cannula 2.0 12/06/16 22:00 91 15 142/93 100 Nasal Cannula 2.0 12/06/16 21:31 Nasal Cannula 2.0 28 12/06/16 21:30 98 Nasal Cannula 2.0 28 12/06/16 21:00 88 14 160/99 99 Nasal Cannula 2.0 12/06/16 20:00 90 12/06/16 20:00 98.5 90 18 160/95 100 Nasal Cannula 2.0 12/06/16 19:15 168/97 12/06/16 19:00 87 18 168/97 100 Nasal Cannula 2.0 12/06/16 18:00 83 18 154/93 100 Nasal Cannula 2.0 12/06/16 17:00 88 17 155/88 100 Nasal Cannula 2.0 12/06/16 16:00 98 12/06/16 16:00 98.1 98 16 148/115 100 Nasal Cannula 2.0 12/06/16 15:00 95 17 167/95 100 Nasal Cannula 2.0 12/06/16 14:00 92 17 159/90 100 Nasal Cannula 2.0 12/06/16 13:00 98 17 154/95 100 Nasal Cannula 2.0 12/06/16 12:05 Nasal Cannula 2.0 28 12/06/16 12:05 105 16 99 12/06/16 12:04 98 14 99 12/06/16 12:01 100 Nasal Cannula 2.0 28 12/06/16 12:00 98.0 98 16 123/79 100 Mechanical Ventilator 30 12/06/16 12:00 Nasal Cannula 2.0 28 12/06/16 12:00 91 12/06/16 12:00 30 Intake and Output 12/07/16 12/08/16 19:00 07:00 Intake Total 400 ml Output Total 125 ml Balance 275 ml Intake Oral 100 ml IV Total 300 ml Output Urine Total 125 ml Laboratory Tests Test 12/07/16 05:20 White Blood Count 6.6 K/UL (4.8-10.8) Red Blood Count 2.56 M/UL (4.70-6.10) L Hemoglobin 8.2 G/DL (14.2-18.0) L Hematocrit 24.3 % (42.0-52.0) L Mean Corpuscular Volume 95 FL (80-99) Mean Corpuscular Hemoglobin 31.9 PG (27.0-31.0) H Mean Corpuscular Hemoglobin Concent 33.7 G/DL (32.0-36.0) Red Cell Distribution Width 13.4 % (11.6-14.8) Platelet Count 130 K/UL (150-450) L Mean Platelet Volume 6.7 FL (6.5-10.1) Neutrophils (%) (Auto) 74.1 % (45.0-75.0) Lymphocytes (%) (Auto) 13.6 % (20.0-45.0) L Monocytes (%) (Auto) 7.1 % (1.0-10.0) Eosinophils (%) (Auto) 3.9 % (0.0-3.0) H Basophils (%) (Auto) 1.3 % (0.0-2.0) Sodium Level 141 mEQ/L (135-145) Potassium Level 5.0 mEQ/L (3.4-4.9) H Chloride Level 104 mEQ/L (98-107) Carbon Dioxide Level 23 mEQ/L (20-30) Anion Gap 14 (5-15) Blood Urea Nitrogen 75 mg/dL (7-23) H Creatinine 15.3 mg/dL (0.7-1.2) H Estimat Glomerular Filtration Rate 4.1 mL/min (>60) Glucose Level 90 mg/dL (74-106) Calcium Level 9.3 mg/dL (8.6-10.2) Phosphorus Level 5.7 mg/dL (2.5-4.8) H Magnesium Level 2.0 mg/dL (1.7-2.5) Total Bilirubin 0.3 mg/dL (0.0-1.2) Aspartate Amino Transf (AST/SGOT) 6 U/L (5-40) Alanine Aminotransferase (ALT/SGPT) 5 U/L (3-41) Alkaline Phosphatase 39 U/L (40-129) L Pro-B-Type Natriuretic Peptide 4916 pg/mL (0-125) H Total Protein 5.4 g/dL (6.6-8.7) L Albumin 2.9 g/dL (3.5-5.2) L Globulin 2.5 g/dL Albumin/Globulin Ratio 1.1 (1.0-2.7) Height (Feet): 6 Height (Inches): 0.00 Weight (Pounds): 166 General Appearance: no apparent distress, alert, thin Cardiovascular: normal rate Respiratory/Chest: normal breath sounds, no respiratory distress Abdominal Exam: normal bowel sounds, non tender, soft, other - peritoneal cathether Kylee Mike N.P. Dec 07, 2016 11:21
--- NOTE | 2016-12-07 12:04 | Pulmonology Progress Note ---
Assessment/Plan Assessment/Plan 1. Acute upper gastrointestinal bleed. 2. Acute anemia, severe. 3. Postprocedure respiratory failure. 4. End-stage renal disease, on peritoneal dialysis. 5. Hypertension. 6. Hyperlipidemia. 7. Coronary heart disease, status post recent stent. repeat EGD without bleeding extubated after EGD No SOB No signs of bleeding dialysis today transfer to [facility] dc tomorrow if stable Subjective Constitutional: Denies: fever Respiratory: Denies: productive cough, shortness of breath Cardiovascular: Denies: chest pain Allergies: Coded Allergies: No Known Allergies (Unverified , 12/04/16) Objective Last 24 Hour Vital Signs Date Time Temp Pulse Resp B/P (MAP) Pulse Ox O2 Delivery O2 Flow Rate FiO2 12/07/16 11:00 78 14 156/93 100 Nasal Cannula 2.0 12/07/16 10:09 171/99 12/07/16 10:00 80 14 171/99 100 Nasal Cannula 2.0 12/07/16 09:00 72 14 162/81 100 Nasal Cannula 2.0 12/07/16 08:00 74 12/07/16 08:00 98.5 71 14 169/93 100 Nasal Cannula 2.0 12/07/16 07:15 76 16 Nasal Cannula 2.0 12/07/16 07:14 Nasal Cannula 2.0 12/07/16 07:13 100 Nasal Cannula 2.0 12/07/16 07:00 77 14 168/64 100 Nasal Cannula 2.0 12/07/16 06:00 77 14 168/91 100 Nasal Cannula 2.0 12/07/16 05:00 85 14 160/93 100 Nasal Cannula 2.0 12/07/16 04:00 98.3 85 14 154/78 100 Nasal Cannula 2.0 12/07/16 04:00 85 12/07/16 03:00 84 15 155/86 100 Nasal Cannula 2.0 12/07/16 02:00 83 15 168/93 100 Nasal Cannula 2.0 12/07/16 01:00 82 19 166/93 98 Nasal Cannula 2.0 12/07/16 00:00 98.6 97 16 140/78 94 Nasal Cannula 2.0 12/07/16 00:00 85 12/06/16 23:00 94 15 131/87 94 Nasal Cannula 2.0 12/06/16 22:00 91 15 142/93 100 Nasal Cannula 2.0 12/06/16 21:31 Nasal Cannula 2.0 28 12/06/16 21:30 98 Nasal Cannula 2.0 28 12/06/16 21:00 88 14 160/99 99 Nasal Cannula 2.0 12/06/16 20:00 90 12/06/16 20:00 98.5 90 18 160/95 100 Nasal Cannula 2.0 12/06/16 19:15 168/97 12/06/16 19:00 87 18 168/97 100 Nasal Cannula 2.0 12/06/16 18:00 83 18 154/93 100 Nasal Cannula 2.0 12/06/16 17:00 88 17 155/88 100 Nasal Cannula 2.0 12/06/16 16:00 98 12/06/16 16:00 98.1 98 16 148/115 100 Nasal Cannula 2.0 12/06/16 15:00 95 17 167/95 100 Nasal Cannula 2.0 12/06/16 14:00 92 17 159/90 100 Nasal Cannula 2.0 12/06/16 13:00 98 17 154/95 100 Nasal Cannula 2.0 12/06/16 12:05 Nasal Cannula 2.0 28 12/06/16 12:05 105 16 99 12/06/16 12:04 98 14 99 Intake and Output 12/07/16 12/08/16 19:00 07:00 Intake Total 400 ml Output Total 125 ml Balance 275 ml Intake Oral 100 ml IV Total 300 ml Output Urine Total 125 ml General Appearance: no acute distress HEENT: atraumatic Respiratory/Chest: lungs clear Cardiovascular: normal rate Abdomen: soft, non tender Microbiology Date/Time Source Procedure Growth Status 12/04/16 22:22 Nasal Nares MRSA Culture - Final NO METHICILLIN RESISTANT STAPH AUREUS... Complete 12/04/16 22:22 Rectum VRE Culture - Final NO VANCOMYCIN RESISTANT ENTEROCOCCUS ... Complete Laboratory Tests 12/07/16 05:20: White Blood Count 6.6, Red Blood Count 2.56L, Hemoglobin 8.2L, Hematocrit 24.3L , Mean Corpuscular Volume 95, Mean Corpuscular Hemoglobin 31.9H, Mean Corpuscular Hemoglobin Concent 33.7, Red Cell Distribution Width 13.4, Platelet Count 130L, Mean Platelet Volume 6.7, Neutrophils (%) (Auto) 74.1, Lymphocytes ( %) (Auto) 13.6L, Monocytes (%) (Auto) 7.1, Eosinophils (%) (Auto) 3.9H, Basophils (%) (Auto) 1.3, Sodium Level 141, Potassium Level 5.0H, Chloride Level 104, Carbon Dioxide Level 23, Anion Gap 14, Blood Urea Nitrogen 75H, Creatinine 15.3H, Estimat Glomerular Filtration Rate 4.1, Glucose Level 90, Calcium Level 9.3, Phosphorus Level 5.7H, Magnesium Level 2.0, Total Bilirubin 0.3, Aspartate Amino Transf (AST/SGOT) 6, Alanine Aminotransferase (ALT/SGPT) 5 , Alkaline Phosphatase 39L, Pro-B-Type Natriuretic Peptide 4916H, Total Protein 5.4L, Albumin 2.9L, Globulin 2.5, Albumin/Globulin Ratio 1.1 Current Medications Medications (Trade) Dose Ordered Sig/Ajit Route PRN Reason Start Time Stop Time Status Last Admin Dose Admin Acetaminophen (Tylenol) 650 mg Q4H PRN ORAL T>100.5 12/05/16 13:30 01/03/17 13:29 Albuterol/ Ipratropium (DuoNeb 0.5-3(2.5)mg/3ml) 3 ml Q4H PRN HHN Shortness of Breath 12/05/16 13:30 12/10/16 13:29 Aspirin (ASA) 81 mg DAILY ORAL 12/07/16 09:00 01/06/17 08:59 12/07/16 08:37 Cinacalcet (Sensipar) 30 mg DAILY ORAL 12/06/16 09:00 01/05/17 08:59 12/07/16 08:37 Clopidogrel Bisulfate (Plavix) 75 mg DAILY ORAL 12/07/16 09:00 01/06/17 08:59 12/07/16 08:37 Dextrose (Dextrose 50%) STAT PRN IV Hypoglycemia 12/05/16 13:30 01/03/17 13:29 Dextrose/Sodium Chloride 1,000 ml @ 50 mls/hr Q20H IV 12/05/16 15:30 01/04/17 15:29 12/07/16 07:49 Diphenhydramine HCl (Benadryl) 25 mg Q6H PRN ORAL Itching/Pruritis 12/05/16 13:30 01/03/17 13:29 Erythromycin Lactobionate 250 mg/Sodium Chloride 110 ml @ 110 mls/hr P4LD-RC ERYTHROMYCIN IVPB 12/05/16 18:00 12/12/16 11:59 12/07/16 10:41 Hydralazine HCl (Apresoline) 10 mg Q4H PRN IV for spb >160 12/05/16 13:30 01/04/17 13:29 12/07/16 10:09 Morphine Sulfate (Morphine Sulfate) 2 mg Q4H PRN IVP Severe Pain (Pain Scale 7-10) 12/05/16 13:30 12/11/16 13:29 12/05/16 18:52 Nitroglycerin (Ntg) 0.4 mg Q5M X 3 DOSES PRN SL Prn Chest Pain 12/05/16 13:30 01/03/17 13:29 Ondansetron HCl (Zofran) 4 mg Q6H PRN IVP Nausea & Vomiting 12/05/16 13:30 01/03/17 13:29 Pantoprazole 80 mg/Sodium Chloride 250 ml @ 25 mls/hr Q10H IV 12/05/16 14:00 01/04/17 13:59 12/07/16 06:56 Polyethylene Glycol (Miralax) 17 gm HSPRN PRN ORAL Constipation 12/05/16 21:00 01/03/17 20:59 Sevelamer Carbonate (Renvela) 800 mg THREE TIMES A DAY ORAL 12/05/16 14:00 01/04/17 13:59 12/07/16 08:37 Temazepam (Restoril) 15 mg HSPRN PRN ORAL Insomnia 12/05/16 21:00 12/11/16 20:59 SCAR BARAHONA Dec 07, 2016 12:04
[2016-12-07 12:20] LABS: TRANSFERRIN SOLUBLE RECEPTOR 6.1 nmol/L (12.2-27.3)
--- NOTE | 2016-12-07 12:57 | General Progress Note ---
Assessment/Plan Status: stable Status Narrative now extubated Assessment/Plan status: ESRD on PD as out patient Acute GI Bleed- Anemia HTN Intubated on Vent post colonoscopy and endoscopy Plan; per GI due dialysis today Keep BP and H&H in check transfuse as needed Weaning off vent as possible per orders Subjective ROS Limited/Unobtainable: No Constitutional: Reports: malaise Allergies: Coded Allergies: No Known Allergies (Unverified , 12/04/16) Objective Last 24 Hour Vital Signs Date Time Temp Pulse Resp B/P (MAP) Pulse Ox O2 Delivery O2 Flow Rate FiO2 12/07/16 12:00 78 12/07/16 11:00 78 14 156/93 100 Nasal Cannula 2.0 12/07/16 10:09 171/99 12/07/16 10:00 80 14 171/99 100 Nasal Cannula 2.0 12/07/16 09:00 72 14 162/81 100 Nasal Cannula 2.0 12/07/16 08:00 74 12/07/16 08:00 98.5 71 14 169/93 100 Nasal Cannula 2.0 12/07/16 07:15 76 16 Nasal Cannula 2.0 12/07/16 07:14 Nasal Cannula 2.0 12/07/16 07:13 100 Nasal Cannula 2.0 12/07/16 07:00 77 14 168/64 100 Nasal Cannula 2.0 12/07/16 06:00 77 14 168/91 100 Nasal Cannula 2.0 12/07/16 05:00 85 14 160/93 100 Nasal Cannula 2.0 12/07/16 04:00 98.3 85 14 154/78 100 Nasal Cannula 2.0 12/07/16 04:00 85 12/07/16 03:00 84 15 155/86 100 Nasal Cannula 2.0 12/07/16 02:00 83 15 168/93 100 Nasal Cannula 2.0 12/07/16 01:00 82 19 166/93 98 Nasal Cannula 2.0 12/07/16 00:00 98.6 97 16 140/78 94 Nasal Cannula 2.0 12/07/16 00:00 85 12/06/16 23:00 94 15 131/87 94 Nasal Cannula 2.0 12/06/16 22:00 91 15 142/93 100 Nasal Cannula 2.0 12/06/16 21:31 Nasal Cannula 2.0 28 12/06/16 21:30 98 Nasal Cannula 2.0 28 12/06/16 21:00 88 14 160/99 99 Nasal Cannula 2.0 12/06/16 20:00 90 12/06/16 20:00 98.5 90 18 160/95 100 Nasal Cannula 2.0 12/06/16 19:15 168/97 12/06/16 19:00 87 18 168/97 100 Nasal Cannula 2.0 12/06/16 18:00 83 18 154/93 100 Nasal Cannula 2.0 12/06/16 17:00 88 17 155/88 100 Nasal Cannula 2.0 12/06/16 16:00 98 12/06/16 16:00 98.1 98 16 148/115 100 Nasal Cannula 2.0 12/06/16 15:00 95 17 167/95 100 Nasal Cannula 2.0 12/06/16 14:00 92 17 159/90 100 Nasal Cannula 2.0 12/06/16 13:00 98 17 154/95 100 Nasal Cannula 2.0 Intake and Output 12/07/16 12/08/16 18:59 06:59 Intake Total 775 ml Output Total 125 ml Balance 650 ml Intake Oral 400 ml IV Total 375 ml Output Urine Total 125 ml Laboratory Tests 12/07/16 05:20: White Blood Count 6.6, Red Blood Count 2.56L, Hemoglobin 8.2L, Hematocrit 24.3L , Mean Corpuscular Volume 95, Mean Corpuscular Hemoglobin 31.9H, Mean Corpuscular Hemoglobin Concent 33.7, Red Cell Distribution Width 13.4, Platelet Count 130L, Mean Platelet Volume 6.7, Neutrophils (%) (Auto) 74.1, Lymphocytes ( %) (Auto) 13.6L, Monocytes (%) (Auto) 7.1, Eosinophils (%) (Auto) 3.9H, Basophils (%) (Auto) 1.3, Sodium Level 141, Potassium Level 5.0H, Chloride Level 104, Carbon Dioxide Level 23, Anion Gap 14, Blood Urea Nitrogen 75H, Creatinine 15.3H, Estimat Glomerular Filtration Rate 4.1, Glucose Level 90, Calcium Level 9.3, Phosphorus Level 5.7H, Magnesium Level 2.0, Total Bilirubin 0.3, Aspartate Amino Transf (AST/SGOT) 6, Alanine Aminotransferase (ALT/SGPT) 5 , Alkaline Phosphatase 39L, Pro-B-Type Natriuretic Peptide 4916H, Total Protein 5.4L, Albumin 2.9L, Globulin 2.5, Albumin/Globulin Ratio 1.1 Height (Feet): 6 Height (Inches): 0.00 Weight (Pounds): 166 General Appearance: no apparent distress Neck: normal alignment Cardiovascular: normal rate Respiratory/Chest: lungs clear Objective no signs of CHF CELIO CAREY Dec 07, 2016 12:57
--- NOTE | 2016-12-07 12:59 | Cardiology Progress Note ---
Assessment/Plan Assessment/Plan 1. Acute gastrointestinal bleed. 2. Acute anemia. 3. History of gastrointestinal bleed and anemia, requiring clipping on several occasions. 4. End-stage renal disease, on home peritoneal dialysis. 5. Sinus tachycardia secondary to anemia. 6. Hypertension. 7. Anemia of chronic disease. 8. Hyperlipidemia. 9. Secondary hyperparathyroidism. 10. History of cervical laminectomy. 11. FERNANDO inhibitor as well as carvedilol allergic reactions. 12. Coronary artery disease, status post recent stenting one week ago or so at [facility] per pt . had repeat endoscopy yest no source of bleeding found so got started on ecotrin hg responded to tx overnite restarted on ecotrin and plavix so far no bleeding no records obtained from [facility] Subjective Cardiovascular: Denies: chest pain, lightheadedness, palpitations Respiratory: Denies: SOB with excertion Gastrointestinal/Abdominal: Denies: abdominal pain, nausea, vomiting Genitourinary: Denies: burning Objective Last 24 Hour Vital Signs Date Time Temp Pulse Resp B/P (MAP) Pulse Ox O2 Delivery O2 Flow Rate FiO2 12/07/16 12:00 78 12/07/16 11:00 78 14 156/93 100 Nasal Cannula 2.0 12/07/16 10:09 171/99 12/07/16 10:00 80 14 171/99 100 Nasal Cannula 2.0 12/07/16 09:00 72 14 162/81 100 Nasal Cannula 2.0 12/07/16 08:00 74 12/07/16 08:00 98.5 71 14 169/93 100 Nasal Cannula 2.0 12/07/16 07:15 76 16 Nasal Cannula 2.0 12/07/16 07:14 Nasal Cannula 2.0 12/07/16 07:13 100 Nasal Cannula 2.0 12/07/16 07:00 77 14 168/64 100 Nasal Cannula 2.0 12/07/16 06:00 77 14 168/91 100 Nasal Cannula 2.0 12/07/16 05:00 85 14 160/93 100 Nasal Cannula 2.0 12/07/16 04:00 98.3 85 14 154/78 100 Nasal Cannula 2.0 12/07/16 04:00 85 12/07/16 03:00 84 15 155/86 100 Nasal Cannula 2.0 12/07/16 02:00 83 15 168/93 100 Nasal Cannula 2.0 12/07/16 01:00 82 19 166/93 98 Nasal Cannula 2.0 12/07/16 00:00 98.6 97 16 140/78 94 Nasal Cannula 2.0 12/07/16 00:00 85 12/06/16 23:00 94 15 131/87 94 Nasal Cannula 2.0 12/06/16 22:00 91 15 142/93 100 Nasal Cannula 2.0 12/06/16 21:31 Nasal Cannula 2.0 28 12/06/16 21:30 98 Nasal Cannula 2.0 28 12/06/16 21:00 88 14 160/99 99 Nasal Cannula 2.0 12/06/16 20:00 90 12/06/16 20:00 98.5 90 18 160/95 100 Nasal Cannula 2.0 12/06/16 19:15 168/97 12/06/16 19:00 87 18 168/97 100 Nasal Cannula 2.0 12/06/16 18:00 83 18 154/93 100 Nasal Cannula 2.0 12/06/16 17:00 88 17 155/88 100 Nasal Cannula 2.0 12/06/16 16:00 98 12/06/16 16:00 98.1 98 16 148/115 100 Nasal Cannula 2.0 12/06/16 15:00 95 17 167/95 100 Nasal Cannula 2.0 12/06/16 14:00 92 17 159/90 100 Nasal Cannula 2.0 12/06/16 13:00 98 17 154/95 100 Nasal Cannula 2.0 General Appearance: no apparent distress, alert Neck: no JVD Cardiovascular: normal rate, regular rhythm, systolic murmur Respiratory/Chest: lungs clear, normal breath sounds Abdomen: normal bowel sounds, non tender, soft Extremities: no swelling Intake and Output 12/07/16 12/08/16 19:00 07:00 Intake Total 700 ml Output Total 125 ml Balance 575 ml Intake Oral 400 ml IV Total 300 ml Output Urine Total 125 ml Laboratory Tests Test 12/07/16 05:20 White Blood Count 6.6 K/UL (4.8-10.8) Red Blood Count 2.56 M/UL (4.70-6.10) L Hemoglobin 8.2 G/DL (14.2-18.0) L Hematocrit 24.3 % (42.0-52.0) L Mean Corpuscular Volume 95 FL (80-99) Mean Corpuscular Hemoglobin 31.9 PG (27.0-31.0) H Mean Corpuscular Hemoglobin Concent 33.7 G/DL (32.0-36.0) Red Cell Distribution Width 13.4 % (11.6-14.8) Platelet Count 130 K/UL (150-450) L Mean Platelet Volume 6.7 FL (6.5-10.1) Neutrophils (%) (Auto) 74.1 % (45.0-75.0) Lymphocytes (%) (Auto) 13.6 % (20.0-45.0) L Monocytes (%) (Auto) 7.1 % (1.0-10.0) Eosinophils (%) (Auto) 3.9 % (0.0-3.0) H Basophils (%) (Auto) 1.3 % (0.0-2.0) Sodium Level 141 mEQ/L (135-145) Potassium Level 5.0 mEQ/L (3.4-4.9) H Chloride Level 104 mEQ/L (98-107) Carbon Dioxide Level 23 mEQ/L (20-30) Anion Gap 14 (5-15) Blood Urea Nitrogen 75 mg/dL (7-23) H Creatinine 15.3 mg/dL (0.7-1.2) H Estimat Glomerular Filtration Rate 4.1 mL/min (>60) Glucose Level 90 mg/dL (74-106) Calcium Level 9.3 mg/dL (8.6-10.2) Phosphorus Level 5.7 mg/dL (2.5-4.8) H Magnesium Level 2.0 mg/dL (1.7-2.5) Total Bilirubin 0.3 mg/dL (0.0-1.2) Aspartate Amino Transf (AST/SGOT) 6 U/L (5-40) Alanine Aminotransferase (ALT/SGPT) 5 U/L (3-41) Alkaline Phosphatase 39 U/L (40-129) L Pro-B-Type Natriuretic Peptide 4916 pg/mL (0-125) H Total Protein 5.4 g/dL (6.6-8.7) L Albumin 2.9 g/dL (3.5-5.2) L Globulin 2.5 g/dL Albumin/Globulin Ratio 1.1 (1.0-2.7) Microbiology Date/Time Source Procedure Growth Status 12/04/16 22:22 Nasal Nares MRSA Culture - Final NO METHICILLIN RESISTANT STAPH AUREUS... Complete 12/04/16 22:22 Rectum VRE Culture - Final NO VANCOMYCIN RESISTANT ENTEROCOCCUS ... Complete KEV CORNEJO Dec 07, 2016 12:59
[2016-12-07] MEDS ORDERED: Tubing Blood Filter IV ONE (14:59)
[2016-12-07] MEDS ORDERED: D5 1/2NS 1000ml IV ONE (14:59)
--- NOTE | 2016-12-07 16:21 | General Progress Note ---
Assessment/Plan Assessment/Plan 1. Anemia secondary to chronic disease as well as GI bleed. Work up has been reviewed, no evidence of iron deficiency --> s/p multiple transfusions --> had repeat egd, no active bleed found --> monitor counts 2. Gastrointestinal bleed with gastritis history, underwent an EGD with esophageal bleed. Appreciate GI recommendations. --> endoclips placed at site of bleed during first egd 4. End-stage renal disease. 5. Peritoneal dialysis. 6. Coronary artery disease history with coronary angioplasty. 7. Intubated status post procedure. 8. Anticoagulation at this time. 9. Monitor as per Cardiology service. Subjective Constitutional: Reports: no symptoms HEENT: Reports: no symptoms Cardiovascular: Reports: no symptoms Respiratory: Reports: no symptoms Gastrointestinal/Abdominal: Reports: no symptoms Genitourinary: Reports: no symptoms Neurologic/Psychiatric: Reports: no symptoms Endocrine: Reports: no symptoms Hematologic/Lymphatic: Reports: anemia Allergies: Coded Allergies: No Known Allergies (Unverified , 12/04/16) Subjective HH better, s/p transfusion Objective Last 24 Hour Vital Signs Date Time Temp Pulse Resp B/P (MAP) Pulse Ox O2 Delivery O2 Flow Rate FiO2 12/07/16 15:00 84 14 138/69 100 Nasal Cannula 2.0 12/07/16 14:00 71 14 137/83 100 Nasal Cannula 2.0 12/07/16 13:00 84 14 164/98 100 Nasal Cannula 2.0 12/07/16 12:00 97.8 79 14 144/89 100 Nasal Cannula 2.0 12/07/16 12:00 78 12/07/16 11:00 78 14 156/93 100 Nasal Cannula 2.0 12/07/16 10:09 171/99 12/07/16 10:00 80 14 171/99 100 Nasal Cannula 2.0 12/07/16 09:00 72 14 162/81 100 Nasal Cannula 2.0 12/07/16 08:00 74 12/07/16 08:00 98.5 71 14 169/93 100 Nasal Cannula 2.0 12/07/16 07:15 76 16 Nasal Cannula 2.0 12/07/16 07:14 Nasal Cannula 2.0 12/07/16 07:13 100 Nasal Cannula 2.0 12/07/16 07:00 77 14 168/64 100 Nasal Cannula 2.0 12/07/16 06:00 77 14 168/91 100 Nasal Cannula 2.0 12/07/16 05:00 85 14 160/93 100 Nasal Cannula 2.0 12/07/16 04:00 98.3 85 14 154/78 100 Nasal Cannula 2.0 12/07/16 04:00 85 12/07/16 03:00 84 15 155/86 100 Nasal Cannula 2.0 12/07/16 02:00 83 15 168/93 100 Nasal Cannula 2.0 12/07/16 01:00 82 19 166/93 98 Nasal Cannula 2.0 12/07/16 00:00 98.6 97 16 140/78 94 Nasal Cannula 2.0 12/07/16 00:00 85 12/06/16 23:00 94 15 131/87 94 Nasal Cannula 2.0 12/06/16 22:00 91 15 142/93 100 Nasal Cannula 2.0 12/06/16 21:31 Nasal Cannula 2.0 28 12/06/16 21:30 98 Nasal Cannula 2.0 28 12/06/16 21:00 88 14 160/99 99 Nasal Cannula 2.0 12/06/16 20:00 90 12/06/16 20:00 98.5 90 18 160/95 100 Nasal Cannula 2.0 12/06/16 19:15 168/97 12/06/16 19:00 87 18 168/97 100 Nasal Cannula 2.0 12/06/16 18:00 83 18 154/93 100 Nasal Cannula 2.0 12/06/16 17:00 88 17 155/88 100 Nasal Cannula 2.0 Intake and Output 12/07/16 12/08/16 19:00 07:00 Intake Total 1100 ml Output Total 125 ml Balance 975 ml Intake Oral 500 ml IV Total 600 ml Output Urine Total 125 ml Laboratory Tests 12/07/16 05:20: White Blood Count 6.6, Red Blood Count 2.56L, Hemoglobin 8.2L, Hematocrit 24.3L , Mean Corpuscular Volume 95, Mean Corpuscular Hemoglobin 31.9H, Mean Corpuscular Hemoglobin Concent 33.7, Red Cell Distribution Width 13.4, Platelet Count 130L, Mean Platelet Volume 6.7, Neutrophils (%) (Auto) 74.1, Lymphocytes ( %) (Auto) 13.6L, Monocytes (%) (Auto) 7.1, Eosinophils (%) (Auto) 3.9H, Basophils (%) (Auto) 1.3, Sodium Level 141, Potassium Level 5.0H, Chloride Level 104, Carbon Dioxide Level 23, Anion Gap 14, Blood Urea Nitrogen 75H, Creatinine 15.3H, Estimat Glomerular Filtration Rate 4.1, Glucose Level 90, Calcium Level 9.3, Phosphorus Level 5.7H, Magnesium Level 2.0, Total Bilirubin 0.3, Aspartate Amino Transf (AST/SGOT) 6, Alanine Aminotransferase (ALT/SGPT) 5 , Alkaline Phosphatase 39L, Pro-B-Type Natriuretic Peptide 4916H, Total Protein 5.4L, Albumin 2.9L, Globulin 2.5, Albumin/Globulin Ratio 1.1 Height (Feet): 6 Height (Inches): 0.00 Weight (Pounds): 166 General Appearance: no apparent distress EENT: normal ENT inspection Neck: normal alignment Cardiovascular: normal rate Extremities: non-tender Loco Cormier Dec 07, 2016 16:21
[2016-12-08] VITALS (9 sets, daily range): BP systolic 150–186; BP diastolic 93–112
[2016-12-08] MEDS: ERYTHROMYCIN IVPB SCH (01:44)
[2016-12-08] MEDS: NS IVPB SCH (01:44)
[2016-12-08] MEDS: Pantoprazole 80 MG in NS 250 ML IV SCH (01:44)
[2016-12-08] MEDS: D5 1/2NS 1,000 ML IV SCH (03:30)
[2016-12-08 05:21] LABS: BASOPHILS % (AUTO) 1.6 % (0.0-2.0); EOSINOPHILS % (AUTO) 3.1 % (0.0-3.0); MEAN CORPUSCULAR HEMOGLOBIN 32.2 PG (27.0-31.0); MEAN CORPUSCULAR HGB CONC 34.6 G/DL (32.0-36.0); MEAN CORPUSCULAR VOLUME 93 FL (80-99); MEAN PLATELET VOLUME 7.2 FL (6.5-10.1); MONOCYTES % (AUTO) 8.7 % (1.0-10.0); NEUTROPHILS % (AUTO) 72.6 % (45.0-75.0); PLATELET COUNT 114 K/UL (150-450); RED BLOOD COUNT 2.62 M/UL (4.70-6.10); RED CELL DISTRIBUTION WIDTH 12.7 % (11.6-14.8); WHITE BLOOD COUNT 5.7 K/UL (4.8-10.8)
[2016-12-08 05:37] LABS: MAGNESIUM 1.6 mg/dL (1.7-2.5); PHOSPHORUS 3.3 mg/dL (2.5-4.8)
[2016-12-08 05:42] LABS: ALBUMIN/GLOBULIN RATIO 1.2 (1.0-2.7); CALCIUM 8.2 mg/dL (8.6-10.2); CREATININE 10.2 mg/dL (0.7-1.2); GLOMERULAR FILTRATION RATE 6.5 mL/min (>60); POTASSIUM 3.9 mEQ/L (3.4-4.9); TOTAL PROTEIN 5.2 g/dL (6.6-8.7)
[2016-12-08] MEDS ORDERED: Nitroglycerin Subl 0.4mg tab SL PRN (07:00)
[2016-12-08] MEDS ORDERED: Morphine Sulfate 2mg/ml Inj IVP PRN (07:10)
[2016-12-08] MEDS ORDERED: DuoNeb 0.5-3(2.5)mg/3ml neb HHN PRN (07:10)
[2016-12-08] MEDS ORDERED: D5 1/2NS 1,000 ML IV SCH (07:10)
[2016-12-08] MEDS ORDERED: Renvela 800mg Pkt ORAL SCH ×2 (09:00→13:00)
[2016-12-08] MEDS ORDERED: Sensipar 30mg Tab ORAL SCH (09:00)
[2016-12-08] MEDS ORDERED: Aspirin Baby 81mg ORAL SCH (09:00)
--- NOTE | 2016-12-08 09:04 | Pulmonology Progress Note ---
Assessment/Plan Assessment/Plan 1. Acute upper gastrointestinal bleed. 2. Acute anemia, severe. 3. Postprocedure respiratory failure. 4. End-stage renal disease, on peritoneal dialysis. 5. Hypertension. 6. Hyperlipidemia. 7. Coronary heart disease, status post recent stent. Nose bleeding; on ASA and Plavix to prevent stent thrombosis Need ENT to cauterize; difficult to find anyone need to remove HD catheter working w medical staff, insurance otherwise stable for dc Subjective HEENT: Repors: other - nose bleed Allergies: Coded Allergies: No Known Allergies (Unverified , 12/04/16) Objective Last 24 Hour Vital Signs Date Time Temp Pulse Resp B/P (MAP) Pulse Ox O2 Delivery O2 Flow Rate FiO2 12/08/16 08:00 95 12/08/16 06:00 93 16 150/97 100 Nasal Cannula 12/08/16 05:09 163/96 12/08/16 05:00 87 16 163/96 100 Nasal Cannula 2.0 12/08/16 04:00 98.7 90 18 175/98 100 Nasal Cannula 2.0 12/08/16 04:00 83 12/08/16 03:00 91 17 161/104 100 Nasal Cannula 2.0 12/08/16 02:00 92 19 169/93 100 Nasal Cannula 2.0 12/08/16 01:08 186/103 12/08/16 01:00 84 16 186/103 100 Nasal Cannula 2.0 12/08/16 00:00 98.4 82 14 176/94 100 Nasal Cannula 2.0 12/07/16 23:00 86 17 158/93 100 Nasal Cannula 2.0 12/07/16 22:00 90 16 158/105 100 Nasal Cannula 2.0 12/07/16 21:07 177/95 12/07/16 21:00 88 17 177/98 100 Nasal Cannula 2.0 12/07/16 20:00 96 12/07/16 20:00 98.0 88 18 150/92 100 Nasal Cannula 2.0 12/07/16 20:00 90 17 Nasal Cannula 2.0 28 12/07/16 20:00 98.3 12/07/16 20:00 99 Nasal Cannula 2.0 28 12/07/16 20:00 Nasal Cannula 2.0 28 12/07/16 19:00 90 14 145/92 100 Nasal Cannula 2.0 12/07/16 18:15 Nasal Cannula 2.0 12/07/16 18:00 87 14 122/85 100 Nasal Cannula 2.0 12/07/16 17:00 85 14 150/98 100 Nasal Cannula 2.0 12/07/16 16:00 98.3 82 14 167/82 100 Nasal Cannula 2.0 12/07/16 16:00 71 12/07/16 15:00 84 14 138/69 100 Nasal Cannula 2.0 12/07/16 14:40 Nasal Cannula 2.0 12/07/16 14:00 71 14 137/83 100 Nasal Cannula 2.0 12/07/16 13:00 84 14 164/98 100 Nasal Cannula 2.0 12/07/16 12:00 97.8 79 14 144/89 100 Nasal Cannula 2.0 12/07/16 12:00 78 12/07/16 11:00 78 14 156/93 100 Nasal Cannula 2.0 12/07/16 10:09 171/99 12/07/16 10:00 80 14 171/99 100 Nasal Cannula 2.0 HEENT: normocephalic, other - naris packed Laboratory Tests 12/08/16 04:30: White Blood Count 5.7, Red Blood Count 2.62L, Hemoglobin 8.5L, Hematocrit 24.5L , Mean Corpuscular Volume 93, Mean Corpuscular Hemoglobin 32.2H, Mean Corpuscular Hemoglobin Concent 34.6, Red Cell Distribution Width 12.7, Platelet Count 114L, Mean Platelet Volume 7.2, Neutrophils (%) (Auto) 72.6, Lymphocytes ( %) (Auto) 14.0L, Monocytes (%) (Auto) 8.7, Eosinophils (%) (Auto) 3.1H, Basophils (%) (Auto) 1.6, Sodium Level 140, Potassium Level 3.9, Chloride Level 99, Carbon Dioxide Level 28, Anion Gap 13, Blood Urea Nitrogen 36#H, Creatinine 10.2H, Estimat Glomerular Filtration Rate 6.5, Glucose Level 100, Calcium Level 8.2L, Phosphorus Level 3.3, Magnesium Level 1.6L, Total Bilirubin 0.3, Aspartate Amino Transf (AST/SGOT) 10, Alanine Aminotransferase (ALT/SGPT) 6, Alkaline Phosphatase 49, Total Protein 5.2L, Albumin 2.9L, Globulin 2.3, Albumin /Globulin Ratio 1.2 Current Medications Medications (Trade) Dose Ordered Sig/Ajit Route PRN Reason Start Time Stop Time Status Last Admin Dose Admin Acetaminophen (Tylenol) 650 mg Q4H PRN ORAL T>100.5 12/08/16 08:00 01/03/17 07:59 Albuterol/ Ipratropium (DuoNeb 0.5-3(2.5)mg/3ml) 3 ml Q4H PRN HHN Shortness of Breath 12/08/16 07:10 12/10/16 07:09 Aspirin (ASA) 81 mg DAILY ORAL 12/08/16 09:00 01/06/17 08:59 Cinacalcet (Sensipar) 30 mg DAILY ORAL 12/08/16 09:00 01/05/17 08:59 Clopidogrel Bisulfate (Plavix) 75 mg DAILY ORAL 12/08/16 09:00 01/06/17 08:59 Dextrose (Dextrose 50%) STAT PRN IV Hypoglycemia 12/08/16 07:10 01/03/17 07:09 Dextrose/Sodium Chloride 1,000 ml @ 50 mls/hr Q20H IV 12/08/16 07:10 01/04/17 07:09 12/08/16 07:21 Diphenhydramine HCl (Benadryl) 25 mg Q6H PRN ORAL Itching/Pruritis 12/08/16 07:30 01/03/17 13:29 Hydralazine HCl (Apresoline) 10 mg Q4H PRN IV for spb >160 12/08/16 07:30 01/04/17 07:29 Morphine Sulfate (Morphine Sulfate) 2 mg Q4H PRN IVP Severe Pain (Pain Scale 7-10) 12/08/16 07:10 12/11/16 07:09 Nitroglycerin (Ntg) 0.4 mg Q5M X 3 DOSES PRN SL Prn Chest Pain 12/08/16 07:00 01/03/17 13:29 Ondansetron HCl (Zofran) 4 mg Q6H PRN IVP Nausea & Vomiting 12/08/16 07:30 01/03/17 13:29 Pantoprazole 80 mg/Sodium Chloride 250 ml @ 25 mls/hr Q10H IV 12/05/16 14:00 12/08/16 11:44 12/08/16 01:44 Pantoprazole 80 mg/Sodium Chloride 250 ml @ 25 mls/hr Q10H IV 12/08/16 12:00 01/04/17 11:59 Polyethylene Glycol (Miralax) 17 gm HSPRN PRN ORAL Constipation 12/08/16 21:00 01/03/17 20:59 Sevelamer Carbonate (Renvela) 800 mg THREE TIMES A DAY ORAL 12/08/16 09:00 01/04/17 13:59 Temazepam (Restoril) 15 mg HSPRN PRN ORAL Insomnia 12/08/16 21:00 12/11/16 20:59 SCAR BARAHONA Dec 08, 2016 09:04
[2016-12-08 10:43] LABS: OTHERS PATHOLOGIST COMMENT
--- NOTE | 2016-12-08 10:47 | General Progress Note ---
Assessment/Plan Status: stable - from renal stand Assessment/Plan status: ESRD on PD as out patient Acute GI Bleed- Anemia HTN, OOC s/p Intubated on Vent post colonoscopy and endoscopy Plan; Adjust BP meds- HD in am- ENT eval per GI Keep BP and H&H in check transfuse as needed if stable can DC with right Jugular cath for now per orders Subjective HEENT: Reports: other - nose bleed+ Allergies: Coded Allergies: No Known Allergies (Unverified , 12/04/16) Objective Last 24 Hour Vital Signs Date Time Temp Pulse Resp B/P (MAP) Pulse Ox O2 Delivery O2 Flow Rate FiO2 12/08/16 08:00 98.9 93 23 150/112 99 Room Air 12/08/16 08:00 95 12/08/16 07:18 Nasal Cannula 2.0 28 12/08/16 06:00 93 16 150/97 100 Nasal Cannula 12/08/16 05:09 163/96 12/08/16 05:00 87 16 163/96 100 Nasal Cannula 2.0 12/08/16 04:00 98.7 90 18 175/98 100 Nasal Cannula 2.0 12/08/16 04:00 83 12/08/16 03:00 91 17 161/104 100 Nasal Cannula 2.0 12/08/16 02:00 92 19 169/93 100 Nasal Cannula 2.0 12/08/16 01:08 186/103 12/08/16 01:00 84 16 186/103 100 Nasal Cannula 2.0 12/08/16 00:00 98.4 82 14 176/94 100 Nasal Cannula 2.0 12/07/16 23:00 86 17 158/93 100 Nasal Cannula 2.0 12/07/16 22:00 90 16 158/105 100 Nasal Cannula 2.0 12/07/16 21:07 177/95 12/07/16 21:00 88 17 177/98 100 Nasal Cannula 2.0 12/07/16 20:00 96 12/07/16 20:00 98.0 88 18 150/92 100 Nasal Cannula 2.0 12/07/16 20:00 90 17 Nasal Cannula 2.0 28 12/07/16 20:00 98.3 12/07/16 20:00 99 Nasal Cannula 2.0 28 12/07/16 20:00 Nasal Cannula 2.0 28 12/07/16 19:00 90 14 145/92 100 Nasal Cannula 2.0 12/07/16 18:15 Nasal Cannula 2.0 12/07/16 18:00 87 14 122/85 100 Nasal Cannula 2.0 12/07/16 17:00 85 14 150/98 100 Nasal Cannula 2.0 12/07/16 16:00 98.3 82 14 167/82 100 Nasal Cannula 2.0 12/07/16 16:00 71 12/07/16 15:00 84 14 138/69 100 Nasal Cannula 2.0 12/07/16 14:40 Nasal Cannula 2.0 12/07/16 14:00 71 14 137/83 100 Nasal Cannula 2.0 12/07/16 13:00 84 14 164/98 100 Nasal Cannula 2.0 12/07/16 12:00 97.8 79 14 144/89 100 Nasal Cannula 2.0 12/07/16 12:00 78 12/07/16 11:00 78 14 156/93 100 Nasal Cannula 2.0 Laboratory Tests 12/08/16 04:30: White Blood Count 5.7, Red Blood Count 2.62L, Hemoglobin 8.5L, Hematocrit 24.5L , Mean Corpuscular Volume 93, Mean Corpuscular Hemoglobin 32.2H, Mean Corpuscular Hemoglobin Concent 34.6, Red Cell Distribution Width 12.7, Platelet Count 114L, Mean Platelet Volume 7.2, Neutrophils (%) (Auto) 72.6, Lymphocytes ( %) (Auto) 14.0L, Monocytes (%) (Auto) 8.7, Eosinophils (%) (Auto) 3.1H, Basophils (%) (Auto) 1.6, Sodium Level 140, Potassium Level 3.9, Chloride Level 99, Carbon Dioxide Level 28, Anion Gap 13, Blood Urea Nitrogen 36#H, Creatinine 10.2H, Estimat Glomerular Filtration Rate 6.5, Glucose Level 100, Calcium Level 8.2L, Phosphorus Level 3.3, Magnesium Level 1.6L, Total Bilirubin 0.3, Aspartate Amino Transf (AST/SGOT) 10, Alanine Aminotransferase (ALT/SGPT) 6, Alkaline Phosphatase 49, Total Protein 5.2L, Albumin 2.9L, Globulin 2.3, Albumin /Globulin Ratio 1.2 Height (Feet): 6 Height (Inches): 0.00 Weight (Pounds): 166 General Appearance: no apparent distress EENT: other - epistaxis Cardiovascular: normal rate Respiratory/Chest: decreased breath sounds Abdomen: soft Objective no signs of CHF CELIO ACREY Dec 08, 2016 10:47
[2016-12-08 10:49] LABS: OTHERS PATHOLOGIST COMMENT
--- NOTE | 2016-12-08 11:47 | GI Progress Note ---
Assessment/Plan Problems: (1) Anemia ICD Codes: D64.9 - Anemia, unspecified SNOMED: 674641165 Qualifiers: Qualified Codes: D64.9 - Anemia, unspecified (2) Gastrointestinal hemorrhage ICD Codes: K92.2 - Gastrointestinal hemorrhage, unspecified SNOMED: 86264225 Qualifiers: Qualified Codes: K92.2 - Gastrointestinal hemorrhage, unspecified (3) Peritoneal dialysis status ICD Codes: Z99.2 - Dependence on renal dialysis SNOMED: 092791234 (4) Hemorrhagic shock SNOMED: 891551 Status: stable, progressing Status Narrative Discussed with Dr. Funez. Assessment/Plan S/P EGD x 2 - #1. Active bleeding in the stomach from a Dieulafoy lesion in the midbody of the stomach, status post hemostasis with two Hemoclip placement. - #2. There was no active GI bleeding. No esophageal bleeding. Hepatitis panel >> negative episode of epistaxis last night, seen by ED MD. Plan: soft renal diet ppi gtt >> BID monitor H&H, prn transfusions electrolyte replacement fu labs Subjective Subjective feels better Objective Last 24 Hour Vital Signs Date Time Temp Pulse Resp B/P (MAP) Pulse Ox O2 Delivery O2 Flow Rate FiO2 12/08/16 08:00 98.9 93 23 150/112 99 Room Air 12/08/16 08:00 95 12/08/16 07:18 Nasal Cannula 2.0 28 12/08/16 06:00 93 16 150/97 100 Nasal Cannula 12/08/16 05:09 163/96 12/08/16 05:00 87 16 163/96 100 Nasal Cannula 2.0 12/08/16 04:00 98.7 90 18 175/98 100 Nasal Cannula 2.0 12/08/16 04:00 83 12/08/16 03:00 91 17 161/104 100 Nasal Cannula 2.0 12/08/16 02:00 92 19 169/93 100 Nasal Cannula 2.0 12/08/16 01:08 186/103 12/08/16 01:00 84 16 186/103 100 Nasal Cannula 2.0 12/08/16 00:00 98.4 82 14 176/94 100 Nasal Cannula 2.0 12/07/16 23:00 86 17 158/93 100 Nasal Cannula 2.0 12/07/16 22:00 90 16 158/105 100 Nasal Cannula 2.0 12/07/16 21:07 177/95 12/07/16 21:00 88 17 177/98 100 Nasal Cannula 2.0 12/07/16 20:00 96 12/07/16 20:00 98.0 88 18 150/92 100 Nasal Cannula 2.0 12/07/16 20:00 90 17 Nasal Cannula 2.0 28 12/07/16 20:00 98.3 12/07/16 20:00 99 Nasal Cannula 2.0 28 12/07/16 20:00 Nasal Cannula 2.0 28 12/07/16 19:00 90 14 145/92 100 Nasal Cannula 2.0 12/07/16 18:15 Nasal Cannula 2.0 12/07/16 18:00 87 14 122/85 100 Nasal Cannula 2.0 12/07/16 17:00 85 14 150/98 100 Nasal Cannula 2.0 12/07/16 16:00 98.3 82 14 167/82 100 Nasal Cannula 2.0 12/07/16 16:00 71 12/07/16 15:00 84 14 138/69 100 Nasal Cannula 2.0 12/07/16 14:40 Nasal Cannula 2.0 12/07/16 14:00 71 14 137/83 100 Nasal Cannula 2.0 12/07/16 13:00 84 14 164/98 100 Nasal Cannula 2.0 12/07/16 12:00 97.8 79 14 144/89 100 Nasal Cannula 2.0 12/07/16 12:00 78 Laboratory Tests Test 12/08/16 04:30 White Blood Count 5.7 K/UL (4.8-10.8) Red Blood Count 2.62 M/UL (4.70-6.10) L Hemoglobin 8.5 G/DL (14.2-18.0) L Hematocrit 24.5 % (42.0-52.0) L Mean Corpuscular Volume 93 FL (80-99) Mean Corpuscular Hemoglobin 32.2 PG (27.0-31.0) H Mean Corpuscular Hemoglobin Concent 34.6 G/DL (32.0-36.0) Red Cell Distribution Width 12.7 % (11.6-14.8) Platelet Count 114 K/UL (150-450) L Mean Platelet Volume 7.2 FL (6.5-10.1) Neutrophils (%) (Auto) 72.6 % (45.0-75.0) Lymphocytes (%) (Auto) 14.0 % (20.0-45.0) L Monocytes (%) (Auto) 8.7 % (1.0-10.0) Eosinophils (%) (Auto) 3.1 % (0.0-3.0) H Basophils (%) (Auto) 1.6 % (0.0-2.0) Sodium Level 140 mEQ/L (135-145) Potassium Level 3.9 mEQ/L (3.4-4.9) Chloride Level 99 mEQ/L (98-107) Carbon Dioxide Level 28 mEQ/L (20-30) Anion Gap 13 (5-15) Blood Urea Nitrogen 36 mg/dL (7-23) #H Creatinine 10.2 mg/dL (0.7-1.2) H Estimat Glomerular Filtration Rate 6.5 mL/min (>60) Glucose Level 100 mg/dL (74-106) Calcium Level 8.2 mg/dL (8.6-10.2) L Phosphorus Level 3.3 mg/dL (2.5-4.8) Magnesium Level 1.6 mg/dL (1.7-2.5) L Total Bilirubin 0.3 mg/dL (0.0-1.2) Aspartate Amino Transf (AST/SGOT) 10 U/L (5-40) Alanine Aminotransferase (ALT/SGPT) 6 U/L (3-41) Alkaline Phosphatase 49 U/L (40-129) Total Protein 5.2 g/dL (6.6-8.7) L Albumin 2.9 g/dL (3.5-5.2) L Globulin 2.3 g/dL Albumin/Globulin Ratio 1.2 (1.0-2.7) Height (Feet): 6 Height (Inches): 0.00 Weight (Pounds): 166 General Appearance: no apparent distress, alert Cardiovascular: normal rate Respiratory/Chest: normal breath sounds, no respiratory distress Abdominal Exam: normal bowel sounds, non tender, soft, other - peritoneal dialysis cath Extremities: normal range of motion Kylee Mike N.P. Dec 08, 2016 11:47
[2016-12-08] MEDS ORDERED: Pantoprazole 80 MG in NS 250 ML IV SCH (12:00)
[2016-12-08] MEDS ORDERED: PROTONIX40 MG ORAL (12:44)
[2016-12-08] MEDS ORDERED: AMOXIL250 MG ORAL (12:44)
--- NOTE | 2016-12-08 12:50 | Discharge Summary ---
Discharge Summary Hospital Course Date of Admission Dec 04, 2016 at 17:45 Date of Discharge 12/08/16 Admitting Diagnosis GI BLEED HPI Olayinka March is a 51 year old male who was admitted on Dec 04, 2016 at 17: 45 for Gastrointestinal Bleed Consultations GI, heme, renal, pulmonary Procedures EGD x 2, dialysis, nasal packing Hospital Course transfused for UGI bleed. EGD with gastric lesions clipped intubated x 24 hr after EGD for airway protection due to emesis repeat EGD no bleeding started back on ASA and Plavix for recent cardiac stent developed nose bleed, packed and dc to ENT office HD catheter to be removed as outpatient on PD Discharge Medications New Medications: Amoxicillin* (Amoxil*) 250 Mg Capsule 250 MG ORAL EVERY 8 HOURS, #15 CAP 0 Refills Pantoprazole* (Protonix*) 40 Mg Tablet.dr 40 MG ORAL DAILY, #30 TAB Continued Medications: Amlodipine Bes/Olmesartan Med 10-40 Mg Tablet (Pasha 10-40 Mg Tablet) 1 Each Tablet 1 TAB ORAL DAILY, TAB Atorvastatin Calcium* (Lipitor*) 40 Mg Tablet 40 MG ORAL DAILY, TAB Cinacalcet* (Sensipar*) 30 Mg Tablet 30 MG ORAL DAILY, TAB Clonidine (Clonidine) 1 Each Patch.tdwk 1 EACH TD, PATCH Clopidogrel Bisulfate* (Plavix*) 75 Mg Tablet 70 MG ORAL DAILY, TAB Docusate Sodium* (Colace*) 100 Mg Capsule 100 MG ORAL DAILY, CAP Furosemide* (Lasix*) 20 Mg Tablet 20 MG ORAL DAILY, TAB Omeprazole (Omeprazole) 10 Mg Capsule.dr 10 MG ORAL DAILY, #30 CAP 0 Refills Ramipril* (Ramipril*) 2.5 Mg Capsule 2.5 MG ORAL DAILY, #30 CAP 0 Refills Sevelamer Carbonate* (Renvela*) 0.8 Gm Powd.pack 800 MG ORAL THREE TIMES A DAY, PACK Discharge Condition Upon Discharge: improving Discharge Disposition Patient was discharged to home (after ENT visit) Discharge Diagnoses: (1) CAD S/P percutaneous coronary angioplasty (2) Hemorrhage from nose (3) Gastrointestinal hemorrhage (4) ESRF (end stage renal failure) (5) Peritoneal dialysis status (6) Hemorrhagic shock (7) Anemia SCAR BARAHONA Dec 08, 2016 12:50
[2016-12-08] MEDS ORDERED: D5 1/2NS 1000ml IV ONE (15:03)
[2016-12-08] MEDS ORDERED: Miralax 17gm pkt ORAL PRN (21:00)
[2016-12-09] MEDS ORDERED: Pantoprazole Inj IVP SCH (09:00)
--- NOTE | 2016-12-10 22:12 | Diagnostic Imaging Report ---
APPROVED REPORT CPT Code: 08541 Present Symptoms Shortness of breath BILATERAL: Imaging reveals a patent deep venous system bilaterally. There is no evidence of thrombus within the femoral, popliteal or tibial segments. The greater saphenous veins are also within normal limits. Doppler indicates normal spontaneous flow within these segments.
== END 2016-12-08 15:04 | disposition home or self-care (01) | DRG 377 ==
LOC: EDBD 16:54 → EMR 17:44 → 2E 17:45 → ENRESERV 22:44 → EDBEDREQ 22:45 → SDU 12-05 11:31 → ICU 12-05 12:05 → 2W 12-08 06:36
PROC: B543ZZA Ultrasonography of Right Jugular Veins, Guidance (ICD-10-PCS; principal; 2016-12-05 10:14)
PROC: 3E0G8GC Introduction of Other Therapeutic Substance into Upper GI, Via Natural or Artificial Opening Endoscopic (ICD-10-PCS; principal; 2016-12-05 10:14)
PROC: 5A1945Z Respiratory Ventilation, 24-96 Consecutive Hours (ICD-10-PCS; principal; 2016-12-05 10:14)
PROC: 05HP33Z Insertion of Infusion Device into Right External Jugular Vein, Percutaneous Approach (ICD-10-PCS; principal; 2016-12-05 10:14)
PROC: 0W3P8ZZ Control Bleeding in Gastrointestinal Tract, Via Natural or Artificial Opening Endoscopic (ICD-10-PCS; principal; 2016-12-05 10:14)
PROC: 0BH17EZ Insertion of Endotracheal Airway into Trachea, Via Natural or Artificial Opening (ICD-10-PCS; principal; 2016-12-05 10:14)
PROC: 30233P1 Transfusion of Nonautologous Frozen Red Cells into Peripheral Vein, Percutaneous Approach (ICD-10-PCS; principal; 2016-12-05 10:14)
PROC: 30233N1 Transfusion of Nonautologous Red Blood Cells into Peripheral Vein, Percutaneous Approach (ICD-10-PCS; principal; 2016-12-05 10:14)
PROC: 0DJ08ZZ Inspection of Upper Intestinal Tract, Via Natural or Artificial Opening Endoscopic (ICD-10-PCS; 2016-12-06)
PROC: 5A1D00Z (ICD-10-PCS; 2016-12-08)
DX: K31.82 Dieulafoy lesion (hemorrhagic) of stomach and duodenum (principal); N18.6 End stage renal disease; R57.8 Other shock; J95.821 Acute postprocedural respiratory failure; I12.0 Hypertensive chronic kidney disease with stage 5 chronic kidney disease or end stage renal disease; N25.81 Secondary hyperparathyroidism of renal origin; Z99.2 Dependence on renal dialysis; I25.10 Atherosclerotic heart disease of native coronary artery without angina pectoris; E78.5 Hyperlipidemia, unspecified; R00.0 Tachycardia, unspecified; D63.8 Anemia in other chronic diseases classified elsewhere; D50.9 Iron deficiency anemia, unspecified; Z79.02 Long term (current) use of antithrombotics/antiplatelets; Z95.5 Presence of coronary angioplasty implant and graft; Z87.891 Personal history of nicotine dependence
CPT/HCPCS: 36415; 36569; 36600; 71010; 76775; 76937; 80053; 80061; 81001; 82150; 82550; 82607; 82728; 82746; 82803; 82977; 83540; 83550; 83615; 83690; 83735; 83880; 84100; 84165; 84238; 84443; 84550; 85007; 85025; 85044; 85060; 85384; 85610; 85730; 86140; 86703; 86705; 86709; 86803; 86850; 86900; 86901; 86920; 86927; 87081; 87340; 92610; 93005; 93970; 94002; 94003; 94150; 94664; 94760; 99285; J0171; J2405

== ENCOUNTER 2016-12-11 17:57 | Emergency (ER) | payer OTHER ==
[~2016-12-11] VITALS: Ht 182.9 cm; Wt 70.3 kg
[~2016-12-11 17:57] MED LIST: AMOXIL250 MG ORAL; AZOR 10-40 MG1 EACH ORAL; CLONIDINE1 EAC1 TD; COLACE100 MG ORAL; FUROSEMIDE20 M1 ORAL; LIPITOR40 MG ORAL; OMEPRAZOLE10 M1 ORAL; PLAVIX75 MG ORAL; PROTONIX40 MG ORAL; RAMIPRIL2.5 MG ORAL; RENVELA0.8 GM ORAL; SENSIPAR30 MG ORAL
[2016-12-11 19:10] VITALS: BP 194/99
[2016-12-11 19:40] VITALS: BP 194/99
--- NOTE | 2016-12-11 21:44 | Emergency Room Report ---
History of Present Illness General Chief Complaint: General Complaint Source: Patient Present Illness HPI [id number] walked in with request to have Manoj cath removed from right side of neck Was placed during admission this past week Has HD access in other location Was placed by Dr Johnston who advised patient to f/up with PMD for removal. Patient tried but PMD not in office so he came to ED States catheter "irritates me." Denies fever/chills, rash at site I dunlap Dr Johnston who advised me that I can remove by cutting sutures, pulling out catheter and holding pressure Allergies: Coded Allergies: No Known Allergies (Unverified , 12/04/16) Patient History Past Medical History: renal disease, dialysis Past Surgical History: none Pertinent Family History: none Social History: Denies: smoking, alcohol use, drug use Immunizations: UTD Reviewed Nursing Documentation: PMH: Agreed, PSxH: Agreed Nursing Documentation-PMH Past Medical History: No History, Except For Hx Cardiac Problems: Yes - stent placement Hx Hypertension: Yes Hx Cancer: No Hx Gastrointestinal Problems: Yes - Peritonel Dialysis Hx Neurological Problems: Yes Hx Transient Ischemic Attacks: Yes - 2010 Review of Systems All Other Systems: negative except mentioned in HPI Physical Exam Vital Signs Date Time Temp Pulse Resp B/P (MAP) Pulse Ox O2 Delivery O2 Flow Rate FiO2 12/11/16 18:12 97.5 75 18 167/104 100 Room Air Sp02 EP Interpretation: reviewed, normal General Appearance: normal inspection, well appearing, no apparent distress, alert, GCS 15, non-toxic Head: normocephalic, atraumatic Eyes: bilateral eye PERRL, bilateral eye EOMI ENT: normal ENT inspection, hearing grossly normal, normal voice Neck: normal inspection, full range of motion, supple, no bony tend Respiratory: normal inspection, lungs clear, normal breath sounds, no respiratory distress, no retraction, no wheezing Cardiovascular #1: regular rate, rhythm, no edema Gastrointestinal: normal inspection, normal bowel sounds, non tender, soft, no guarding, no hernia Genitourinary: no CVA tenderness Musculoskeletal: normal inspection, back normal, normal range of motion, Hattie' s Sign negative Neurologic: normal inspection, alert, oriented x3, responsive, public health administrator III-XII nml as tested, motor strength/tone normal, speech normal Psychiatric: normal inspection, judgement/insight normal, mood/affect normal Skin: normal inspection, normal color, no rash, other - Right neck area: Manoj cath visualized. No surrounding sign of infection. No bleeding. Lymphatic: normal inspection Medical Decision Making Diagnostic Impression: Primary Impression: Encounter for removal of vascular catheter ER Course Manoj catheter removed No sign of infection RN held pressure until bleeding cessated Patient remained stable DC home Last Vital Signs Date Time Temp Pulse Resp B/P (MAP) Pulse Ox O2 Delivery O2 Flow Rate FiO2 12/11/16 19:40 67 14 194/99 100 Room Air 12/11/16 19:10 97.6 Status: improved Disposition: HOME, SELF-CARE Condition: Improved Referrals: SCAR BARAHONA (PCP) Patient Instructions: PICC Removal, Care After Additional Instructions: - Keep bandage on for 24 hours - if continues to bleed apply pressure at home. if continues to bleed after that , return to ER SCAR SCHOFIELD M.D. Dec 11, 2016 21:44
== END 2016-12-11 19:40 | disposition home or self-care (01) ==
LOC: EMR 19:09
DX: Z45.2 Encounter for adjustment and management of vascular access device (principal); I10 Essential (primary) hypertension; Z86.73 Personal history of transient ischemic attack (TIA), and cerebral infarction without residual deficits
CPT/HCPCS: 99283

== ENCOUNTER 2017-03-27 18:14 | Emergency (ER) | payer OTHER ==
[~2017-03-27] VITALS: Ht 182.9 cm; Wt 72.6 kg
[2017-03-27] MEDS ORDERED: DIPHENHYDRAMINE25 M1 ORAL (18:58)
[2017-03-27] MEDS ORDERED: PREDNISONE20 MG ORAL (18:58)
[2017-03-27] MEDS ORDERED: Dexamethasone 4mg/ml vial IM ONE (19:00)
--- NOTE | 2017-03-27 19:35 | Emergency Room Report ---
History of Present Illness General Chief Complaint: General Complaint Source: Patient Present Illness HPI 51-year-old male presents to ED complaining of tongue soreness. Patient states his tongue has been swollen x2 days. Denies injury his tongue. Denies any pain. Denies any shortness of breath. Denies any difficulty swallowing. Patient is has history of end-stage renal disease and gets peritoneal dialysis. Patient states he does take blood pressure medications but does not know the name of them. Denies fevers or chills. Denies chest pain shortness of breath. No other aggravating relieving factors. Denies any other associated symptoms Allergies: Coded Allergies: No Known Allergies (Unverified , 12/04/16) Patient History Past Medical History: HTN, CVA/TIA, renal disease, dialysis Past Surgical History: none Pertinent Family History: none Social History: Denies: smoking, alcohol use, drug use Immunizations: UTD Reviewed Nursing Documentation: PMH: Agreed, PSxH: Agreed Nursing Documentation-PMH Hx Cardiac Problems: Yes - stent placement Hx Hypertension: Yes Hx Cancer: No Hx Gastrointestinal Problems: Yes - Peritonel Dialysis Hx Neurological Problems: Yes Hx Transient Ischemic Attacks: Yes - 2010 Review of Systems All Other Systems: negative except mentioned in HPI Physical Exam Vital Signs Date Time Temp Pulse Resp B/P (MAP) Pulse Ox O2 Delivery O2 Flow Rate FiO2 03/27/17 18:08 98.1 78 16 170/100 98 Room Air Sp02 EP Interpretation: reviewed, normal General Appearance: no apparent distress, alert, GCS 15, non-toxic Head: normocephalic Eyes: bilateral eye normal inspection, bilateral eye PERRL ENT: hearing grossly normal, normal pharynx, no angioedema, normal voice, TMs + canals normal, uvula midline, other - tongue swollen Neck: full range of motion, supple/symm/no masses, other - no stridor Respiratory: chest non-tender, lungs clear, normal breath sounds, speaking full sentences Cardiovascular #1: regular rate, rhythm, no edema Gastrointestinal: normal inspection Rectal: deferred Genitourinary: no CVA tenderness Musculoskeletal: back normal Neurologic: alert, oriented x3, responsive, motor strength/tone normal, sensory intact, speech normal Psychiatric: normal inspection Skin: normal inspection Lymphatic: normal inspection Medical Decision Making Diagnostic Impression: Primary Impression: Angioedema Qualified Codes: T78.3XXA - Angioneurotic edema, initial encounter ER Course Hospital Course 51-year-old male presents to ED with swelling to tongue Differential diagnoses include: Cellulitis, dermatitis, insect bite, abscess Clinical course Patient placed on stretcher. After initial history, physical exam reveals a middle-age male in no acute distress. On exam his tongue is swollen. No induration. No fluctuance. No discharge. Floor of the mouth this unremarkable. No stridor. No nuchal rigidity. Airways clear. Patient appears nontoxic Reviewed EMR patient has recently been admitted here at 2017. Patient is currently on Ramipril. I asked patient and he admits to taking his medication. I explained to patient is likely angioedema related to FERNANDO inhibitor use. However appears mild. no signs of airway compromise. given decadron and benedryl in ED Recommend discontinuing the medication followup with PMD to change medication. Patient states understanding. Patient will get his house tonight but will discontinue his medication Diagnosis - angioedema stable and discharged to home with prescription for prednisone, Benadryl. discontinue ramipril. Instructed to followup with PMD. Instructed return to ED if symptoms recur or worsen Last Vital Signs Date Time Temp Pulse Resp B/P (MAP) Pulse Ox O2 Delivery O2 Flow Rate FiO2 03/27/17 18:08 98.1 78 16 170/100 98 Room Air Status: improved Disposition: HOME, SELF-CARE Condition: Stable Scripts Diphenhydramine Hcl* (DIPHENHYDRAMINE HCL*) 25 Mg Capsule 25 MG ORAL Q6H Y for Itching, #30 CAP 0 Refills Prov: ALIE SHIELDS M.D. 03/27/17 Prednisone* (PREDNISONE*) 20 Mg Tablet 40 MG ORAL DAILY, #10 TAB Prov: ALIE SHIELDS M.D. 03/27/17 Patient Instructions: Angioedema, [id number] Additional Instructions: stop RAMIPRIL. ask your PMD to change to different medication. ALIE SHIELDS M.D. Mar 27, 2017 19:35
[2017-03-27 19:47] VITALS: BP 170/100
--- NOTE | 2017-03-27 21:33 | Emergency Room Report ---
History of Present Illness General Chief Complaint: General Complaint Source: Patient Present Illness Allergies: Coded Allergies: No Known Allergies (Unverified , 12/04/16) Nursing Documentation-PMH Hx Cardiac Problems: Yes - stent placement Hx Hypertension: Yes Hx Cancer: No Hx Gastrointestinal Problems: Yes - Peritonel Dialysis Hx Neurological Problems: Yes Hx Transient Ischemic Attacks: Yes - 2010 Physical Exam Vital Signs Date Time Temp Pulse Resp B/P (MAP) Pulse Ox O2 Delivery O2 Flow Rate FiO2 03/27/17 18:08 98.1 78 16 170/100 98 Room Air Medical Decision Making Diagnostic Impression: Primary Impression: Angioedema Qualified Codes: T78.3XXA - Angioneurotic edema, initial encounter ER Course Brother came to patient side and believes he may be more altered than usual for past few days. I spoke to patient and he understood discharge instructions. Brother is requesting that we provide further evaluation. I offered to check labs and perform CT Head. I ordered labs, CT. Nurse witnessed that patient elopes with brother from ED. Last Vital Signs Date Time Temp Pulse Resp B/P (MAP) Pulse Ox O2 Delivery O2 Flow Rate FiO2 03/27/17 19:47 78 16 170/100 98 Room Air 03/27/17 19:47 98.1 Status: unchanged Disposition: ELOPED Condition: Unknown Scripts Diphenhydramine Hcl* (DIPHENHYDRAMINE HCL*) 25 Mg Capsule 25 MG ORAL Q6H Y for Itching, #30 CAP 0 Refills Prov: ALIE SHIELDS M.D. 03/27/17 Prednisone* (PREDNISONE*) 20 Mg Tablet 40 MG ORAL DAILY, #10 TAB Prov: ALIE SHIELDS M.D. 03/27/17 Referrals: [facility],REFERR[facility] (PCP) Patient Instructions: Angioedema, [id number] Additional Instructions: stop RAMIPRIL. ask your PMD to change to different medication. ALIE SHIELDS M.D. Mar 27, 2017 21:33
== END 2017-03-27 19:49 | disposition home or self-care (01) ==
LOC: EDBD 18:14 → EMR 19:34
DX: T78.3XXA Angioneurotic edema, initial encounter (principal); Z86.73 Personal history of transient ischemic attack (TIA), and cerebral infarction without residual deficits; Z95.5 Presence of coronary angioplasty implant and graft; I12.0 Hypertensive chronic kidney disease with stage 5 chronic kidney disease or end stage renal disease; N18.6 End stage renal disease; Z99.2 Dependence on renal dialysis; X58.XXXA Exposure to other specified factors, initial encounter; Y92.9 Unspecified place or not applicable
CPT/HCPCS: 96372; 99283; J1100